=== PATIENT | male | born 1945 | race Caucasian/White ===

== ENCOUNTER 2022-05-16 16:05 | Emergency (ER) | payer MEDICARE, BC, SELFPAY ==
[2022-05-16] VITALS (24 sets, daily range): BP systolic 114–170; BP diastolic 55–81; PULSE 64–97; RESP 16; TEMP 36.3; O2SAT 94–99; BMI 25.8
--- NOTE | 2022-05-16 16:44 | ED.GENADULT ---
HPI - General Adult General Time Seen by Provider: 16:45 <Alphonse Sifuentes MD - Last Filed: 05/16/22 19:31> Date Seen: 05/16/22 <Alphonse Sifuentes MD - Last Filed: 05/16/22 19:31> Chief complaint: Abdominal Pain <Alphonse Sifuentes MD - Last Filed: 05/16/22 19:31> Stated complaint: SEVERE ABDOMINAL PAIN,RIGHT SIDE <Alphonse Sifuentes MD - Last Filed: 05/16/22 19:31> Time Seen by Provider: 05/16/22 16:30 <Alphonse Sifuentes MD - Last Filed: 05/16/22 19:31> History of Present Illness HPI narrative: Javier is a 77-year-old male past medical history includes hypertension, cardiomyopathy, presents emergency department with with abdominal pain. Patient states that around noon today he developed some right lower quadrant abdominal pain, this occurred while he was driving, he did have breakfast and lunch, set associated nausea but no vomiting, pain is 7/10, he has not taken anything for it, he denies any urinary complaints, he has had normal bowel movements, no blood in the stool. He did have a normal colonoscopy a awhile ago. Plain a sharp, worse with movement. He has not had any fevers, chills myalgias arthralgias, he got up early this morning and was feeling well. Due to the worsening pain he presents emerged department. <Alphonse Sifuentes MD - Last Filed: 05/16/22 19:31> Related Data Home medications: Home Medications Medication Instructions Recorded Confirmed amlodipine 5 mg tablet mg 05/16/22 carvedilol 12.5 mg tablet mg 05/16/22 hydrochlorothiazide 25 mg tablet mg 05/16/22 losartan 100 mg tablet mg 05/16/22 <Alphonse Sifuentes MD - Last Filed: 05/16/22 19:31> Allergies/adverse reactions: Allergies Allergy/AdvReac Type Severity Reaction Status Date / Time No Known Drug Allergies Allergy Verified 05/16/22 16:32 <Alphonse Sifuentes MD - Last Filed: 05/16/22 19:31> Review of Systems Status of ROS: Reports: 10 or more systems reviewed and unremarkable except as noted in History and below <Alphonse Sifuentes MD - Last Filed: 05/16/22 19:31> [facility] Social History: Social History Smoking Status: Never smoker Do you use any of these nicotine containing products: None Second hand tobacco smoke exposure: No How often do you have a drink containing alcohol: never How often do you have six or more drinks on one occasion: Never AUDIT-C Alcohol total score: 0 Non-prescribed substance use: denies use <Alphonse Sifuentes MD - Last Filed: 05/16/22 19:31> Exam Narrative: Exam Narrative: General: in obvious distress. HEENT: Pupils equal round react to light Neck: Supple full range of motion, no JVD Lungs: Clear to auscultation bilaterally Heart: Normal sinus rhythm S1-S2 Abdomen: Tender to palpation the right lower quadrant, there is no rebound or guarding, bowel sounds are present, abdomen is soft Muscle skeletal: No lower extremity edema Neuro: Alert awake and oriented x3 <Alphonse Sifuentes MD - Last Filed: 05/16/22 19:31> Const: Vital Signs, click to edit/add: Vital Signs - 24 hr 05/16/22 16:32 05/16/22 16:31 05/16/22 17:02 Temperature 97.4 F L Pulse Rate 69 80 Pulse Rate [Right Pulse Oximeter] 97 Respiratory Rate 16 Blood Pressure 170/78 H 156/81 H Blood Pressure [Ri ght Upper Arm] 170/78 H Pulse Oximetry 97 97 99 Oxygen Delivery Me thod Room Air 05/16/22 17:03 05/16/22 17:30 05/16/22 17:32 Temperature Pulse Rate 67 75 66 Pulse Rate [Right Pulse Oximeter] Respiratory Rate Blood Pressure 147/66 H Blood Pressure [Ri ght Upper Arm] Pulse Oximetry 97 97 96 Oxygen Delivery Me thod 05/16/22 17:33 05/16/22 18:00 05/16/22 18:02 Temperature Pulse Rate 77 70 65 Pulse Rate [Right Pulse Oximeter] Respiratory Rate Blood Pressure 114/55 L Blood Pressure [Ri ght Upper Arm] Pulse Oximetry 96 95 95 Oxygen Delivery Me thod 05/16/22 18:03 05/16/22 18:32 05/16/22 18:33 Temperature Pulse Rate 83 77 81 Pulse Rate [Right Pulse Oximeter] Respiratory Rate Blood Pressure 121/63 Blood Pressure [Ri ght Upper Arm] Pulse Oximetry 94 96 96 Oxygen Delivery Me thod 05/16/22 19:00 05/16/22 19:02 05/16/22 19:32 Temperature Pulse Rate 66 71 84 Pulse Rate [Right Pulse Oximeter] Respiratory Rate Blood Pressure 120/57 L 136/61 Blood Pressure [Ri ght Upper Arm] Pulse Oximetry 95 96 95 Oxygen Delivery Me thod 05/16/22 19:35 05/16/22 20:02 05/16/22 20:03 Temperature Pulse Rate 74 77 77 Pulse Rate [Right Pulse Oximeter] Respiratory Rate Blood Pressure 135/65 Blood Pressure [Ri ght Upper Arm] Pulse Oximetry 96 96 96 Oxygen Delivery Me thod 05/16/22 20:32 05/16/22 20:41 Temperature Pulse Rate 79 77 Pulse Rate [Right Pulse Oximeter] Respiratory Rate Blood Pressure 126/64 Blood Pressure [Ri ght Upper Arm] Pulse Oximetry 96 95 Oxygen Delivery Me thod <Alphonse Sifuentes MD - Last Filed: 05/16/22 19:31> Vital Signs, click to edit/add: Vital Signs - 24 hr 05/16/22 16:32 05/16/22 16:31 05/16/22 17:02 Temperature 97.4 F L Pulse Rate 69 80 Pulse Rate [Right Pulse Oximeter] 97 Respiratory Rate 16 Blood Pressure 170/78 H 156/81 H Blood Pressure [Ri ght Upper Arm] 170/78 H Pulse Oximetry 97 97 99 Oxygen Delivery Me thod Room Air 05/16/22 17:03 05/16/22 17:30 05/16/22 17:32 Temperature Pulse Rate 67 75 66 Pulse Rate [Right Pulse Oximeter] Respiratory Rate Blood Pressure 147/66 H Blood Pressure [Ri ght Upper Arm] Pulse Oximetry 97 97 96 Oxygen Delivery Me thod 05/16/22 17:33 05/16/22 18:00 05/16/22 18:02 Temperature Pulse Rate 77 70 65 Pulse Rate [Right Pulse Oximeter] Respiratory Rate Blood Pressure 114/55 L Blood Pressure [Ri ght Upper Arm] Pulse Oximetry 96 95 95 Oxygen Delivery Me thod 05/16/22 18:03 05/16/22 18:32 05/16/22 18:33 Temperature Pulse Rate 83 77 81 Pulse Rate [Right Pulse Oximeter] Respiratory Rate Blood Pressure 121/63 Blood Pressure [Ri ght Upper Arm] Pulse Oximetry 94 96 96 Oxygen Delivery Me thod 05/16/22 19:00 05/16/22 19:02 05/16/22 19:32 Temperature Pulse Rate 66 71 84 Pulse Rate [Right Pulse Oximeter] Respiratory Rate Blood Pressure 120/57 L 136/61 Blood Pressure [Ri ght Upper Arm] Pulse Oximetry 95 96 95 Oxygen Delivery Me thod 05/16/22 19:35 05/16/22 20:02 05/16/22 20:03 Temperature Pulse Rate 74 77 77 Pulse Rate [Right Pulse Oximeter] Respiratory Rate Blood Pressure 135/65 Blood Pressure [Ri ght Upper Arm] Pulse Oximetry 96 96 96 Oxygen Delivery Me thod 05/16/22 20:32 05/16/22 20:41 Temperature Pulse Rate 79 77 Pulse Rate [Right Pulse Oximeter] Respiratory Rate Blood Pressure 126/64 Blood Pressure [Ri ght Upper Arm] Pulse Oximetry 96 95 Oxygen Delivery Me thod <Homero Hernandez MD - Last Filed: 05/16/22 21:48> Course Course Hospital Course: 4:30 PM: AIDET performed. Vitals show mildly elevated blood pressure we will continue to monitor, will obtain CBC, CRP, CMP, lipase urinalysis, IV peripheral, 50 mcg of fentanyl, 15 mg Toradol and 4 mg Zofran for pain and nausea, suspect diverticulitis. Patient and in agreement <Alphonse Sifuentes MD - Last Filed: 05/16/22 19:31> Reevaluation(s) Reevaluation #1: Patient updated on his lab results, will obtain CT abdomen pelvis with IV contrast. Patient's pain has been controlled. <Alphonse Sifuentes MD - Last Filed: 05/16/22 19:31> Time: 18:04 <Alphonse Sifuentes MD - Last Filed: 05/16/22 19:31> Reevaluation #2: Patient updated on his imaging results, which showed massive distention of the gallbladder with numerous large peripherally calcified gallstones which measure up to 4.7 cm. Mild distention of the common hepatic duct and intrahepatic biliary tree. Mild prominence of the right ureter with stone in the right posterior bladder measuring 4 mm prostate toe megaly with mass effect upon the inferior bladder wall. Per Maurizio Serrano 7:01 p.m. plan to speak with general surgery Dr. César MOREL. <Alphonse Sifuentes MD - Last Filed: 05/16/22 19:31> Time: 18:41 <Alphonse Sifuentes MD - Last Filed: 05/16/22 19:31> Reevaluation #3: Pt asymptomatic. Urine shows hematuria without infection. There appears to be a stone in the bladder on CT. Gallbladder ultrasound reviewed with surgeon does not appear to show acute cholecystitis. LFT's are normal. Pt feeling well and would like to go home. Surgery recommends outpt consult for cholecystectomy for cholelithiasis. <Homero Hernandez MD - Last Filed: 05/16/22 21:48> Time: 21:44 <Homero Hernandez MD - Last Filed: 05/16/22 21:48> Consultations Consultation #1: General Surgery <Homero Hernandez MD - Last Filed: 05/16/22 21:48> Time: 21:46 <Homero Hernandez MD - Last Filed: 05/16/22 21:48> Vital Signs Vital signs: Initial Vital Signs Pulse Rate 69 05/16/22 16:31 Blood Pressure 170/78 H 05/16/22 16:31 Blood Pressure Mean 108 05/16/22 16:31 Pulse Oximetry 97 05/16/22 16:31 Vital Signs Pulse Rate 69 05/16/22 16:31 Blood Pressure 170/78 H 05/16/22 16:31 Pulse Oximetry 97 05/16/22 16:31 Temperature 97.4 F L 05/16/22 16:32 Pulse Rate 77 05/16/22 20:41 Respiratory Rate 16 05/16/22 16:32 Blood Pressure 126/64 05/16/22 20:32 Pulse Oximetry 95 05/16/22 20:41 Oxygen Delivery Method 05/16/22 16:32 <Alphonse Sifuentes MD - Last Filed: 05/16/22 19:31> Initial Vital Signs Pulse Rate 69 05/16/22 16:31 Blood Pressure 170/78 H 05/16/22 16:31 Blood Pressure Mean 108 05/16/22 16:31 Pulse Oximetry 97 05/16/22 16:31 Vital Signs Pulse Rate 69 05/16/22 16:31 Blood Pressure 170/78 H 05/16/22 16:31 Pulse Oximetry 97 05/16/22 16:31 Temperature 97.4 F L 05/16/22 16:32 Pulse Rate 77 05/16/22 20:41 Respiratory Rate 16 05/16/22 16:32 Blood Pressure 126/64 05/16/22 20:32 Pulse Oximetry 95 05/16/22 20:41 Oxygen Delivery Method 05/16/22 16:32 <Homero Hernandez MD - Last Filed: 05/16/22 21:48> Medical Decision Making MDM Narrative Medical decision making narrative: Dr. Sifuentes's note reviewed. Consideration for causes include acute abd, kidney stone, cholecystitis. <Homero Hernandez MD - Last Filed: 05/16/22 21:48> Lab Data Labs: Lab Results 05/16/22 05/16/22 05/16/22 Range/Units 17:05 17:05 19:50 WBC 10.46 (4.50-11.00) K/uL RBC 3.77 L (4.30-5.90) m/uL Hgb 12.4 L (13.5-17.5) gm/dL Hct 36.5 L (37.0-53.0) % MCV 97 (80-100) fL MCH 33 (26-34) pg MCHC 34 (32-36) gm/dL RDW Coeff of Keely 12.5 (11.5-15.5) % Plt Count 189 (140-440) K/uL Neut % (Auto) 86.6 H (42.0-72.0) % Lymph % (Auto) 8.9 L (20-44) % [place] % (Auto) 3.8 (0.0-11.0) % Eos % (Auto) 0.3 (0.0-7.0) % Baso % (Auto) 0.3 (0.0-3.0) % Neut # (Auto) 9.10 H (1.7-7.0) K/uL Lymph # (Auto) 0.90 (0.90-2.90) K/uL [place] # (Auto) 0.40 (0.00-0.90) K/UL Eos # (Auto) 0.03 (0.00-0.50) K/uL Baso # (Auto) 0.03 (0.00-0.30) K/uL Abs Immat Gran (auto) 0.01 (0.00-0.30) K/uL Sodium 140 (135-149) mmol/L Potassium 4.1 (3.6-5.1) mmol/L Chloride 102 (96-114) mmol/L Carbon Dioxide 31 (20-32) mmol/L BUN 23 (7-30) mg/dL Creatinine 1.4 (0.5-1.5) mg/dL Estimated Creat Clear 48.56 Estimated GFR 52 ml/min Glucose 125 H (60-115) mg/dL Calcium 9.4 (8.4-10.6) mg/dL Total Bilirubin 0.6 (0.1-1.5) mg/dL AST 28 (12-35) U/L ALT 20 (4-50) U/L Alkaline Phosphatase 74 (40-150) U/L C-Reactive Protein < 0.5 L (0.5-1.0) mg/dL Total Protein 7.5 (6.0-8.3) g/dL Albumin 4.3 (3.3-5.0) g/dL Lipase 63 (23-300) U/L Urine Color Yellow (Yellow) Urine Appearance Slightly Cloudy A (Clear) Urine pH 7.0 (5.0-8.5) Ur Specific [place] 1.010 (1.000-1.030) Urine Protein Negative (Negative) Urine Glucose (UA) Negative (Negative) Urine Ketones Negative (Negative) Urine Blood 3+ A (Negative) Urine Nitrite Negative (Negative) Urine Bilirubin Negative (Negative) Urine Urobilinogen 0.2 (0.2-1.0) Ur Leukocyte Esterase Negative (Negative) Urine RBC >100 A (0-2) Urine WBC 0-2 (0-5) Ur Squamous Epith Cells None (None-Few) Urine Bacteria None (None) <Alphonse Sifuentes MD - Last Filed: 05/16/22 19:31> Lab Results 05/16/22 05/16/22 05/16/22 Range/Units 17:05 17:05 19:50 WBC 10.46 (4.50-11.00) K/uL RBC 3.77 L (4.30-5.90) m/uL Hgb 12.4 L (13.5-17.5) gm/dL Hct 36.5 L (37.0-53.0) % MCV 97 (80-100) fL MCH 33 (26-34) pg MCHC 34 (32-36) gm/dL RDW Coeff of Keely 12.5 (11.5-15.5) % Plt Count 189 (140-440) K/uL Neut % (Auto) 86.6 H (42.0-72.0) % Lymph % (Auto) 8.9 L (20-44) % [place] % (Auto) 3.8 (0.0-11.0) % Eos % (Auto) 0.3 (0.0-7.0) % Baso % (Auto) 0.3 (0.0-3.0) % Neut # (Auto) 9.10 H (1.7-7.0) K/uL Lymph # (Auto) 0.90 (0.90-2.90) K/uL [place] # (Auto) 0.40 (0.00-0.90) K/UL Eos # (Auto) 0.03 (0.00-0.50) K/uL Baso # (Auto) 0.03 (0.00-0.30) K/uL Abs Immat Gran (auto) 0.01 (0.00-0.30) K/uL Sodium 140 (135-149) mmol/L Potassium 4.1 (3.6-5.1) mmol/L Chloride 102 (96-114) mmol/L Carbon Dioxide 31 (20-32) mmol/L BUN 23 (7-30) mg/dL Creatinine 1.4 (0.5-1.5) mg/dL Estimated Creat Clear 48.56 Estimated GFR 52 ml/min Glucose 125 H (60-115) mg/dL Calcium 9.4 (8.4-10.6) mg/dL Total Bilirubin 0.6 (0.1-1.5) mg/dL AST 28 (12-35) U/L ALT 20 (4-50) U/L Alkaline Phosphatase 74 (40-150) U/L C-Reactive Protein < 0.5 L (0.5-1.0) mg/dL Total Protein 7.5 (6.0-8.3) g/dL Albumin 4.3 (3.3-5.0) g/dL Lipase 63 (23-300) U/L Urine Color Yellow (Yellow) Urine Appearance Slightly Cloudy A (Clear) Urine pH 7.0 (5.0-8.5) Ur Specific [place] 1.010 (1.000-1.030) Urine Protein Negative (Negative) Urine Glucose (UA) Negative (Negative) Urine Ketones Negative (Negative) Urine Blood 3+ A (Negative) Urine Nitrite Negative (Negative) Urine Bilirubin Negative (Negative) Urine Urobilinogen 0.2 (0.2-1.0) Ur Leukocyte Esterase Negative (Negative) Urine RBC >100 A (0-2) Urine WBC 0-2 (0-5) Ur Squamous Epith Cells None (None-Few) Urine Bacteria None (None) <Homero Hernandez MD - Last Filed: 05/16/22 21:48> Discharge Plan Discharge Clinical Impression: Cholelithiasis <Alphonse Sifuentes MD - Last Filed: 05/16/22 19:31> Patient Disposition: Home, Self-Care <Alphonse Sifuentes MD - Last Filed: 05/16/22 19:31> Condition: Improved <Alphonse Sifuentes MD - Last Filed: 05/16/22 19:31> Instructions: Gallstones (ED) <Alphonse Sifuentes MD - Last Filed: 05/16/22 19:31> Additional Instructions: Follow up with Dr. Danuta Lindsey for discussion of outpt cholecystectomy <Alphonse Sifuentes MD - Last Filed: 05/16/22 19:31> Activity Level: No Restrictions <Alphonse Sifuentes MD - Last Filed: 05/16/22 19:31> No Restrictions <Homero Hernandez MD - Last Filed: 05/16/22 21:48> Diet Detail: Low Fat Diet <Alphonse Sifuentes MD - Last Filed: 05/16/22 19:31> Low Fat Diet <Homero Hernandez MD - Last Filed: 05/16/22 21:48> Prescriptions: No Action carvedilol 12.5 mg tablet amlodipine 5 mg tablet hydrochlorothiazide 25 mg tablet losartan 100 mg tablet <Alphonse Sifuentes MD - Last Filed: 05/16/22 19:31> Follow Up/Referrals: Joao Beach MD [Primary Care Provider] - <Alphonse Sifuentes MD - Last Filed: 05/16/22 19:31> Stand Alone Forms: My[facility] Info Instructions <Alphonse Sifuentes MD - Last Filed: 05/16/22 19:31>
[2022-05-16] MEDS: ONDANSETRON 2 MG/ML inj 4 MG IVP (17:09)
[2022-05-16] MEDS: fentaNYL 100 MCG/2 ML inj 50 MCG IVP (17:14)
[2022-05-16 17:21] LABS: Basophils Absolute Auto 0.03 K/uL (0.00-0.30); Basophils Percent Auto 0.3 % (0.0-3.0); Eosinophils Absolute Auto 0.03 K/uL (0.00-0.50); Eosinophils Percent Auto 0.3 % (0.0-7.0); Hematocrit 36.5 % (37.0-53.0); Hemoglobin* 12.4 gm/dL (13.5-17.5); Immature Granulocytes Abs Auto 0.01 K/uL (0.00-0.30); Lymphocytes Percent Auto 8.9 % (20-44); Mean Corpuscular HGB Conc 34 gm/dL (32-36); Mean Corpuscular Hemoglobin 33 pg (26-34); Mean Corpuscular Volume 97 fL (80-100); Monocytes Percent Auto 3.8 % (0.0-11.0); Neutrophils Percent Auto 86.6 % (42.0-72.0); Platelet Count* 189 K/uL (140-440); RDW Coefficient of Variation % 12.5 % (11.5-15.5); Red Blood Count 3.77 m/uL (4.30-5.90); White Blood Count* 10.46 K/uL (4.50-11.00)
[2022-05-16] MEDS: KETOROLAC 15 MG/ML inj IVP (17:21)
[2022-05-16 17:35] LABS: Albumin* 4.3 g/dL (3.3-5.0); Chloride* 102 mmol/L (96-114); Sodium* 140 mmol/L (135-149)
[2022-05-16 17:36] LABS: Potassium* 4.1 mmol/L (3.6-5.1)
[2022-05-16 17:37] LABS: Creatinine* 1.4 mg/dL (0.5-1.5); Est. Creatinine Clearance* 48.56; Estimated Glomerular Filt Rate 52 ml/min
[2022-05-16 17:38] LABS: Alanine Aminotransferase* 20 U/L (4-50); Alkaline Phosphatase* 74 U/L (40-150); Aspartate Amino Transferase* 28 U/L (12-35); Bilirubin Total* 0.6 mg/dL (0.1-1.5); Blood Urea Nitrogen* 23 mg/dL (7-30); Carbon Dioxide* 31 mmol/L (20-32); Glucose* 125 mg/dL (60-115); Lipase* 63 U/L (23-300); Total Protein* 7.5 g/dL (6.0-8.3)
[2022-05-16 17:39] LABS: Calcium* 9.4 mg/dL (8.4-10.6)
--- NOTE | 2022-05-16 17:42 | CRLHL7_ITS ---
For Patients: As a result of the Century Cures Act, medical imaging exams and procedure reports are released immediately into your electronic medical record. You may view this report before your referring provider. If you have questions, please contact your health care provider. Indication: SEVERE ABDOMINAL PAIN ON RIGHT SIDE Technique: Postcontrast CT abdomen and pelvis. 91 cc Isovue 370 intravenous contrast. Please note that all CT scans at this facility use dose modulation, iterative reconstruction, and/or weight-based dosing when appropriate to reduce radiation dose to as low as reasonably achievable. Comparison: None Findings: The gallbladder is massively distended measuring 13.4 cm. Left are present with peripheral calcifications measuring 4.7 cm, 3.7 cm and 2.0 cm. No pericholecystic fluid. The gallbladder wall is not particularly dilated. The common hepatic duct measures 9 millimeters and the common bile duct measures 4 millimeters. I do not see any evidence of a distal common bile duct stone. Mild distention of the intrahepatic biliary tree noted. As the stones nearly fill the entire lumen of the gallbladder. No intrahepatic mass. Adrenal glands normal. Vascular calcifications. Parapelvic cysts left kidney and extrarenal pelvis right kidney. Punctate 2 millimeter nonobstructing stone right kidney. Mild dependent scarring in both lung bases without pleural effusion. No free intraperitoneal air. Pancreas and spleen are normal. No upper abdominal adenopathy. Prostate is enlarged with mass effect upon the bladder. There is a stone associated with the posterior bladder measuring 4 millimeters. Mild prominence of the right ureter without ureteral stone. No bowel obstruction or abscess. Degenerative changes throughout the lumbar spine with grade 1 degenerative spondylolisthesis of L4 on L5. Impression: Massive distention of the gallbladder with numerous large peripherally calcified gallstones which measure up to 4.7 cm. Mild distension of the common hepatic duct and intrahepatic biliary tree. Mild prominence of the right ureter with stone in the right posterior bladder measuring 4 millimeters. Prostatomegaly with mass effect upon the inferior bladder wall. Please note that all CT scans at this facility use dose modulation, iterative reconstruction, and/or weight-based dosing when appropriate to reduce radiation dose to as low as reasonably achievable. Dictated by Maurizio Serrano MD @ 05/16/2022 7:01:41 PM (Electronically Signed)
[2022-05-16 17:48] LABS: C Reactive Protein* < 0.5 mg/dL (0.5-1.0)
[2022-05-16 17:49] LABS: Slide Review Reflex No
--- NOTE | 2022-05-16 19:37 | CRLHL7_ITS ---
For Patients: As a result of the Century Cures Act, medical imaging exams and procedure reports are released immediately into your electronic medical record. You may view this report before your referring provider. If you have questions, please contact your health care provider. INDICATION: Evaluate gallbladder stones, right upper quadrant pain COMPARISON: CT or earlier this evening TECHNIQUE: Real time jacome scale imaging and color Doppler analysis was performed of the right upper quadrant. FINDINGS: The patient`s liver is of normal size and has uniform echogenicity. There is a normal appearance of the hepatic IVC and proximal abdominal aorta. There is no evidence of ascites. The gallbladder is distended and there is several large peripherally calcified gallstones again noted. The gallbladder wall measures 4 mm in thickness. The common bile duct is of normal size and measures 4 mm in diameter at the level of the parker hepatis. The visualized pancreas appears normal. There is no evidence of a stone or hydronephrosis within the right kidney. The right kidney measures 11.3 cm in length. IMPRESSION: Large gallstones in the gallbladder lumen with mild gallbladder wall thickening suggesting cholecystitis in the appropriate clinical setting correlate with liver function tests. Dictated by Maurizio Serrano MD @ 05/16/2022 9:27:36 PM (Electronically Signed)
[2022-05-16 19:57] LABS: Appearance Urine Slightly Cloudy (Clear); Bilirubin Urine Negative (Negative); Blood Urine 3+ (Negative); Color Urine Yellow (Yellow); Glucose Urine Negative (Negative); Ketones Urine Negative (Negative); Leukocyte Esterase Urine Negative (Negative); Nitrite Urine Negative (Negative); Protein Urine Negative (Negative); Urobilinogen Urine 0.2 (0.2-1.0)
[2022-05-16 20:40] LABS: RBC Urine >100 (0-2); WBC Urine 0-2 (0-5)
== END 2022-05-16 21:58 | disposition home or self-care (01) ==
PROVIDERS: Emergency Provider Student in an Organized Health Care Education/Training Program; PCP Family Medicine
DX: K80.20 Calculus of gallbladder without cholecystitis without obstruction (principal)
CPT/HCPCS: 36415; 74177; 76705; 80053; 81003; 81015; 83690; 85025; 86140; 96374; 96375; 99283; 99285; J1885; J2405; J3010; Q9967

== ENCOUNTER 2022-10-20 06:12 | Day surgery (SDC) | payer MEDICARE, BC, SELFPAY ==
[2022-10-20] VITALS (11 sets, daily range): BP systolic 115–149; BP diastolic 52–65; PULSE 52–68; RESP 10–16; TEMP 36–36.4; O2SAT 94–98; BMI 27.0
[2022-10-20] MEDS: LACTATED RINGERS 1000 ML 1,000 ML 100 ML IV ×2 (06:55→08:36)
[2022-10-20] MEDS: SODIUM CHLORIDE 0.9 % (FLUSH) 10 ML SYRINGE IVF (07:26)
--- NOTE | 2022-10-20 07:28 | SUR.PREOP ---
Patient provided home covid negative results to RN.
[2022-10-20] MEDS: CEFAZOLIN 2 GM INJ IVP (07:37)
[2022-10-20] MEDS: BUPIVACAINE 0.5% 30 ML INJECTION (08:55)
--- NOTE | 2022-10-20 09:08 | P.GSOP_ITS ---
Operative Note Date of procedure: 10/20/22 Pre-op diagnosis: Cholelithiasis Post-op diagnosis: Same Type of Procedure: Laparoscopic cholecystectomy Indications: Patient is a 77-year-old male who presented to clinic with incidentally found large gallstones (greater than 2 cm). Different treatment options were reviewed, including observation versus surgical intervention. Given the size of the gallstones the patient is at increased risk for gallbladder cancer. Risks and benefits of operative intervention were discussed at length with the patient. Risks included but was not limited to: Bleeding, infection, risk of damage to surrounding structures, possible need for additional procedures, possible need to convert to an open operation and postoperative complications such as pneumonia, pulmonary emboli or CA. All questions and concerns were addressed with the patient agreeing to proceed. Procedure Description: After discussing the risks and benefits of the procedure, the patient signed informed consent.? The operative site was marked and the patient was brought to the operating room and placed on the operating table in supine position.? Care was taken to pad the patient's pressure points.?? The patient was then intubated by anesthesia.?? The operative site was then prepped and draped in the usual s terile fashion.? A time-out was then performed. Entrance to the abdomen was gained via a 5 mm Visiport in the left upper quadrant. The abdomen was insufflated and briefly surveyed for signs of injury. There was none. There were small amount of adhesions of omentum to the anterior abdominal wall supraumbilical. An 11 mm umbilical port was placed as well as 2 working ports along the right costal margin. Patient was then placed in reverse Trendelenburg position with the right side up. The gallbladder fundus was grasped and retracted cephalad. [A small amount of dissection was needed to free omental adhesions from the gallbladder.] The infundibulum was grasped. A combination of hook cautery and blunt dissection was used to carefully dissect out the cystic duct and artery until they could clearly be seen entering the gallbladder without any intervening structures. The gallbladder was dissected off the cystic plate to achieve the critical view. Once this was achieved the cystic duct and artery were each clipped with 2 clips proximally and 1 clip distally and transected with the scissors. The gallbladder was then taken off of the liver bed. A small arterial branch off of the cystic duct artery was visualized during dissection. A single clip was placed proximal and it was cauterized distally. No spilling occurred during this portion of the procedure and the gallbladder was removed from the abdomen using an Endo-Catch bag. This portion of the procedure was difficult secondary to size of the gallstones. The fascial incision was extended medial and lateral to allow for the gallbladder to come out. During manipulation the bag remained intact but there was a small amount of bile spillage onto the external surface of the abdominal wall. The gallbladder bed was surveyed for hemostasis. A small point of arterial bleeding was seen on the apex of the gallbladder fossa. This was controlled with several 5 mm clips. At the end of this hemostasis was excellent. tThe ports were then removed under direct vision. The umbilical port fascia was closed with running 0 Vicryl. The fascial defect measured 3 cm in size. The subcutaneous space was filled with a mixture of 1-1 Betadine and saline and allowed to sit for 3 minutes. The skin was then closed with absorbable subcuticular suture. Instrument sponge and needle counts were correct at the end of the case. The pat ient was then woken and transferred to the PACU in stable condition. ? Findings: Several large gallstones. Anesthesia: GETA Surgeon: Julianna Lindsey MD Estimated blood loss (mL): 5 Specimen: Gallbladder Condition: stable Disposition: same day
--- NOTE | 2022-10-20 09:38 | W.ANESCHARGE ---
Anesthesia Charges Start Date/Time Anesthesia Start Date: 10/20/22 Anesthesia Start Time: 07:36 Stop Date/Time Anesthesia Stop Date: 10/20/22 Anesthesia Stop Time: 09:08 Summary Extremes of Age - Over 70 or under 1: MDA
[2022-10-20] MEDS: ACETAMINOPHEN 325 MG TABLET 650 MG PO (10:39)
== END 2022-10-20 11:12 | disposition home or self-care (01) ==
PROVIDERS: PCP Family Medicine; Visit Provider Surgery
PROC: 0FT44ZZ Resection of Gallbladder, Percutaneous Endoscopic Approach (ICD-10-PCS; CPT 47562; principal; 2022-10-20 07:30)
DX: K80.10 Calculus of gallbladder with chronic cholecystitis without obstruction (principal)
CPT/HCPCS: 47562; 790; 88304; 99100; A9270; J0690; J1100; J1885; J2405; J2704; J3010; J3490; J7120

== ENCOUNTER 2023-08-13 11:45 | Observation (INO) | payer MEDICARE, BC, SELFPAY ==
[2023-08-13] VITALS (24 sets, daily range): BP systolic 119–155; BP diastolic 50–84; PULSE 66–105; RESP 18–22; TEMP 37.3–39.1; O2SAT 90–99; BMI 25.1; BMI 25.8
--- NOTE | 2023-08-13 12:20 | ED_ITS ---
HPI - General Adult General Time Seen by Provider: 12:20 Date Seen: 08/13/23 Chief complaint: Urogenital Problems, Male Stated complaint: possible infection Time Seen by Provider: 08/13/23 11:59 Source: patient and RN notes reviewed Mode of arrival: ambulatory Limitations: no limitations History of Present Illness HPI narrative: This 78-year-old male is ambulatory in the ED of his own accord accompanied by his with concern of possible infection. He started having shaking this morning. He is febrile on presentation. He denies any new or significant pain. About 2 weeks ago he had a robotic assisted laparoscopic radical prostatectomy for prostate cancer. He does have an indwelling Maza in. He denies any cough, no shortness of breath, no respiratory symptoms. He has no increased abdominal pain, no nausea or vomiting, no diarrhea. Related Data Home Medications Medication Instructions Recorded Confirmed amlodipine 5 mg tablet 5 mg PO DAILY 05/16/22 08/13/23 carvedilol 12.5 mg tablet 12.5 mg PO BID 05/16/22 08/13/23 hydrochlorothiazide 25 mg tablet 25 mg PO DAILY 05/16/22 08/13/23 losartan 100 mg tablet 100 mg PO DAILY 05/16/22 08/13/23 glucosamine sulfate 500 mg capsule 500 mg PO BID 10/18/22 08/13/23 selenium 200 mcg capsule 200 mcg PO DAILY 10/18/22 08/13/23 capsicum (cayenne) 450 mg capsule mg PO 08/13/23 cinnamon bark 500 mg capsule 500 mg PO DAILY 08/13/23 08/13/23 (Cinnamon) flax seed 08/13/23 sangeeta (Zingiber officinalis) 250 250 mg PO DAILY 08/13/23 08/13/23 mg capsule (sangeeta extract) melaluka 08/13/23 multivitamin (Daily Multi-Vitamin 1 tab PO DAILY 08/13/23 08/13/23 tablet) niacin 100 mg tablet 100 mg PO DAILY 08/13/23 08/13/23 Allergies Allergy/AdvReac Type Severity Reaction Status Date / Time lisinopril Allergy Cough Verified 10/18/22 11:21 Review of Systems Status of ROS: Reports: 6 or more systems reviewed and unremarkable except as noted in History and below [facility] Medical History (Updated 08/13/23 @ 16:40 by Gena Perdomo MD) Ascending aorta dilatation ?I77.810 - Thoracic aortic ectasia (ICD-10) H/O echocardiogram ?Z92.89 - Personal history of other medical treatment (ICD-10) Left ventricular dysfunction ?I51.9 - Heart disease, unspecified (ICD-10) Aortic regurgitation ?I35.1 - Nonrheumatic aortic (valve) insufficiency (ICD-10) Nonobstructive atherosclerosis of coronary artery ?I25.10 - Atherosclerotic heart disease of [place] coronary artery without angina pectoris (ICD-10) Ischemic cardiomyopathy ?I25.5 - Ischemic cardiomyopathy (ICD-10) Primary malignant neoplasm of prostate ?C61 - Malignant neoplasm of prostate (ICD-10) Elevated PSA ?R97.20 - Elevated prostate specific antigen [PSA] (ICD-10) Essential hypertension ?I10 - Essential (primary) hypertension (ICD-10) Seborrheic keratoses ?L82.1 - Other seborrheic keratosis (ICD-10) 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 ?Z79.01 - detention (current) use of anticoagulants (ICD-10) Surgical History (Updated 08/13/23 @ 16:32 by Gena Perdomo MD) Hx laparoscopic cholecystectomy (~10/20/22) ?Z90.49 - Acquired absence of other specified parts of digestive tract (ICD- 10) Hx of colonoscopy ?Z98.890 - Other specified postprocedural states (ICD-10) Status post prostatectomy (~08/02/23) ?Z90.79 - Acquired absence of other genital organ(s) (ICD-10) History of tonsillectomy and adenoidectomy (~195) ?Z90.89 - Acquired absence of other organs (ICD-10) Hx of inguinal hernia repair (~08/30/12) ?Z98.890 - Other specified postprocedural states (ICD-10) ?Z87.19 - Personal history of other diseases of the digestive system (ICD-10) Family History (Updated 08/13/23 @ 16:36 by Gena Perdomo MD) Mother Breast cancer CHF (congestive heart failure) High blood pressure Dementia Thyroid disease Father Parkinsonism Social History (Updated 08/13/23 @ 17:21 by Gena Perdomo MD) Narrative: 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 to Lazaro, whose here with him today. Lifelong non tobacco user. Denies alcohol or recreational drug use. What is your current living situation?: I presently have a place to live Problems where you live: no known problems Problems where you live details: NA In the past 12 months, utilities in danger of being shut off: no In past 12 months, lack of transportation kept you from medical appts, meetings, work, or getting things needed for daily living: no In the past 12 mos, have been you worried that your food would run out before you had money to buy more?: never true In the past 12 mos, the food you bought just didn't last and you didn't have money to buy more?: never true Smoking Status: Never smoker Do you use any of these nicotine containing products: None Second hand tobacco smoke exposure: No How often do you have a drink containing alcohol: never How often do you have six or more drinks on one occasion: Never AUDIT-C Alcohol total score: 0 Non-prescribed substance use: denies use Caffeine: No How often does anyone, including family, friends and others, physically hurt you : never How often does anyone, including family, friends and others, insult or talk down to you: never How often does anyone, including family, friends and others, threaten you with harm: never How often does anyone, including family, friends and others, scream or curse at you: never service: No Exam Const: Vital Signs, click to edit/add: Vital Signs - 24 hr 08/13/23 12:04 08/13/23 12:20 08/13/23 12:21 Temperature 100.3 F H Pulse Rate Pulse Rate [Pulse Oximeter] 70 Respiratory Rate 22 Blood Pressure Blood Pressure [Ri ght Upper Arm] 155/57 H Pulse Oximetry 98 95 97 08/13/23 12:40 08/13/23 12:49 08/13/23 13:00 Temperature Pulse Rate 82 93 83 Pulse Rate [Pulse Oximeter] Respiratory Rate Blood Pressure Blood Pressure [Ri ght Upper Arm] Pulse Oximetry 94 95 96 08/13/23 13:15 08/13/23 13:30 08/13/23 13:44 Temperature Pulse Rate 91 92 85 Pulse Rate [Pulse Oximeter] Respiratory Rate Blood Pressure 151/84 H Blood Pressure [Ri ght Upper Arm] Pulse Oximetry 96 99 96 08/13/23 13:45 08/13/23 14:00 08/13/23 14:15 Temperature Pulse Rate 82 69 66 Pulse Rate [Pulse Oximeter] Respiratory Rate Blood Pressure Blood Pressure [Ri ght Upper Arm] Pulse Oximetry 96 93 90 08/13/23 14:30 08/13/23 14:33 08/13/23 14:45 Temperature Pulse Rate 103 H 105 H 102 H Pulse Rate [Pulse Oximeter] Respiratory Rate Blood Pressure 142/72 H Blood Pressure [Ri ght Upper Arm] Pulse Oximetry 94 96 97 08/13/23 15:00 08/13/23 15:15 08/13/23 15:30 Temperature Pulse Rate 103 H 101 H 103 H Pulse Rate [Pulse Oximeter] Respiratory Rate Blood Pressure Blood Pressure [Ri ght Upper Arm] Pulse Oximetry 95 95 95 João is a very pleasant 78-year-old male that looks like he does not feel well but is still very conversive. He able to speak in complete sentences. Symmetrical facial function, sclera clear, conjugate gaze. Cheeks are flushed but without any facial rash. Neck is supple, no cervical adenopathy, no th yromegaly masses or nodules. Able to sit up on his own, lungs are clear, good air entry, no wheezing or crackles, no tachypnea. CV regular rate and rhythm, no murmur, normal S1 and S2. Abdomen has port sites that are healing, wounds are clean dry and intact, no drainage noted. He does have some bruising of the abdominal wall. Overall his abdomen is not significantly tender, note no masses or rebound or guarding. He has no lower extremity edema. Moving extremities. Documenting provider has reviewed patient's vital signs: yes Course Course ED Course: This patient obviously has concerns for infectious etiology. His indwelling Maza, would be 1st and foremost in my mind, will obtain chest x-ray to rule out developing postoperative pneumonia. Will check the triple viral swab as that is always a possibility as well. He will have an IV placed, initiate Tylenol for fever management. Watch closely for sepsis. Need to try to find the source of his infectious cause. Reevaluation(s) Time of Reevaluation #1: 14:20 Reevaluation #1: Have discussed with patient and his the concerned that this is a urinary tract infection. I have ordered 1 g IV Rocephin. Reviewed with them that I do think it would be prudent for him to be observed in the hospital at least overnight to ensure that he is not clinically worsening. 1510pm Reviewed with Dr. Perdomo. Consultations Consultation #1: Have reviewed with the current hospitalist Dr. Hernandez. He is going to have Dr. Perdomo the oncoming night hospitalists take over this patient. I will await a call back from her. Upon my discussion with Dr. Hernandez, he agrees that he is not inclined to want any abdominal imaging. Certainly if the patient's status changes or there is increasing abdominal symptoms which he is not having currently, abdominal imaging could always be considered. I do not feel it is necessary at this time. Time: 14:25 Vital Signs Vital signs: Initial Vital Signs Temperature 100.3 F H 08/13/23 12:04 Temperature Source Temporal Artery Scan 08/13/23 12:04 Pulse Rate 70 08/13/23 12:04 Pulse Rhythm Regular 08/13/23 12:04 Respiratory Rate 22 08/13/23 12:04 Blood Pressure 155/57 H 08/13/23 12:04 Blood Pressure Mean 89 08/13/23 12:04 Blood Pressure Position Sitting 08/13/23 12:04 Pulse Oximetry 98 08/13/23 12:04 Vital Signs Temperature 100.3 F H 08/13/23 12:04 Pulse Rate 70 08/13/23 12:04 Respiratory Rate 22 08/13/23 12:04 Blood Pressure 155/57 H 08/13/23 12:04 Pulse Oximetry 98 08/13/23 12:04 Temperature 102.3 F H 08/13/23 16:00 Pulse Rate 96 08/13/23 16:00 Respiratory Rate 18 08/13/23 16:00 Blood Pressure 130/62 08/13/23 16:00 Pulse Oximetry 96 08/13/23 16:36 Medications Administered Medications: Discontinued Medications Generic Name Dose Route Start Last Admin Trade Name Freq PRN Reason Stop Dose Admin Acetaminophen 650 mg 08/13/23 13:33 08/13/23 13:41 Acetaminophen 325 Mg Tablet PO 08/13/23 13:34 650 mg ONCE ONE Administration Ceftriaxone Sodium 1 gm/ 100 mls @ 200 mls/hr 08/13/23 14:03 08/13/23 15:35 Sodium Chloride IVPB 08/13/23 14:04 Infused ONCE ONE Infusion Sodium Chloride 1,000 mls @ 500 mls/hr 08/13/23 14:22 08/13/23 14:32 0.9 % Sodium Chloride 1000 Ml IV 08/13/23 16:21 500 mls/hr .Q2H ABI Administration Medical Decision Making Lab Data Lab results reviewed: Yes I reviewed the patient's lab results Labs: Lab Results 08/13/23 08/13/23 08/13/23 Range/Units 12:16 12:49 13:44 WBC 14.80 H (4.50-11.00) K/uL RBC 3.23 L (4.30-5.90) m/uL Hgb 10.7 L (13.5-17.5) gm/dL Hct 32.8 L (37.0-53.0) % MCV 102 H (80-100) fL MCH 33 (26-34) pg MCHC 33 (32-36) gm/dL RDW Coeff of Keely 13.0 (11.5-15.5) % Plt Count 259 (140-440) K/uL Neut % (Auto) 84.6 H (42.0-72.0) % Lymph % (Auto) 6.2 L (20-44) % [place] % (Auto) 7.6 (0.0-11.0) % Eos % (Auto) 1.3 (0.0-7.0) % Baso % (Auto) 0.1 (0.0-3.0) % Neut # (Auto) 12.50 H (1.7-7.0) K/uL Lymph # (Auto) 0.90 (0.90-2.90) K/uL [place] # (Auto) 1.10 H (0.00-0.90) K/UL Eos # (Auto) 0.20 (0.00-0.50) K/uL Baso # (Auto) 0.00 (0.00-0.30) K/uL Abs Immat Gran (auto) 0.00 (0.00-0.30) K/uL Imm/Tot Granulo (auto) 0.2 % Sodium 139 (135-149) mmol/L Potassium 3.7 (3.6-5.1) mmol/L Chloride 102 (96-114) mmol/L Carbon Dioxide 31 (20-32) mmol/L Anion Gap 6 L (7-15) mEq/L BUN 23 (7-30) mg/dL Creatinine 1.0 (0.5-1.5) mg/dL Estimated Creat Clear 64.89 Estimated GFR 78 ml/min Glucose 136 H (60-115) mg/dL Lactate 1.1 (0.5-1.9) mmol/L Calcium 9.2 (8.4-10.6) mg/dL Total Bilirubin 0.6 (0.1-1.5) mg/dL AST 29 (12-35) U/L ALT 30 (4-50) U/L Alkaline Phosphatase 66 (40-150) U/L C-Reactive Protein 7.5 H (0.5-1.0) mg/dL Total Protein 7.1 (6.0-8.3) g/dL Albumin 4.1 (3.3-5.0) g/dL Urine Color Yellow (Yellow) Urine Appearance Cloudy A (Clear) Urine pH 5.5 (5.0-8.5) Ur Specific [place] 1.025 (1.000-1.030) Urine Protein 1+ A (Negative) Urine Glucose (UA) Negative (Negative) Urine Ketones Negative (Negative) Urine Blood 3+ A (Negative) Urine Nitrite Negative (Negative) Urine Bilirubin Negative (Negative) Urine Urobilinogen 0.2 (0.2-1.0) Ur Leukocyte Esterase 1+ A (Negative) Urine RBC 25-50 A (0-2) Urine WBC 50-100 A (0-5) Ur Squamous Epith Cells Moderate A (None-Few) Urine Bacteria Moderate A (None) SARS-CoV-2 (PCR) Negative SARS-CoV-2 (Negative) Influenza Type A (PCR) Negative PCR FLU A (Negative) Influenza Type B (PCR) Negative PCR FLU B (Negative) RSV (PCR) Negative PCR RSV (Negative) Imaging Data Chest x-ray: Attestation: I have reviewed the pertinent imaging results. Radiologist's impression: Patient: JOÃO SANCHES Facility:?[facility] Patient ID:?[id number] Site Patient ID:?[id number]. Site :?[id number] Study:?XRay Chest PORTABLE-08/13/2023 12:43:09 PM Ordering Physician:?Bebeto Rojas Final Report: INDICATION: Fever COMPARISON: None. TECHNIQUE: 1 view chest radiograph. FINDINGS: Lung volumes are good. No focal consolidations. No pulmonary edema. No pleural effusion. No pneumothorax. No pneumomediastinum. Normal cardiomediastinal silhouette. Bones: Normal for age. IMPRESSION: Lungs clear. Normal chest radiograph. Dictated by Virginia Resendiz MD @ 08/13/2023 1:30:49 PM (Electronic Signature) ECG Data Attestation: I personally reviewed and interpreted this ECG as follows: (Normal sinus rhythm, 80 beats per minute. Bifascicular block. No acute ischemia noted. QT corrected 484 milliseconds.) Discharge Plan Discharge Clinical Impression: Maza catheter in place, Fever, Status post prostatectomy, Acute UTI Patient Disposition: Admitted As Observation
--- NOTE | 2023-08-13 12:21 | CRLHL7_ITS ---
For Patients: As a result of the Cures Act, medical imaging exams and procedure reports are released immediately into your electronic medical record. You may view this report before your referring provider. If you have questions, please contact your health care provider. INDICATION: Fever COMPARISON: None. TECHNIQUE: 1 view chest radiograph. FINDINGS: Lung volumes are good. No focal consolidations. No pulmonary edema. No pleural effusion. No pneumothorax. No pneumomediastinum. Normal cardiomediastinal silhouette. Bones: Normal for age. IMPRESSION: Lungs clear. Normal chest radiograph. Dictated by Virginia Resendiz MD @ 08/13/2023 1:30:49 PM (Electronically Signed)
[2023-08-13 13:00] LABS: Lactate* 1.1 mmol/L (0.5-1.9)
[2023-08-13 13:04] LABS: Basophils Percent Auto 0.1 % (0.0-3.0); Eosinophils Percent Auto 1.3 % (0.0-7.0); Hematocrit 32.8 % (37.0-53.0); Hemoglobin* 10.7 gm/dL (13.5-17.5); Immature Granulocytes Pct Auto 0.2 %; Lymphocytes Percent Auto 6.2 % (20-44); Mean Corpuscular HGB Conc 33 gm/dL (32-36); Mean Corpuscular Hemoglobin 33 pg (26-34); Mean Corpuscular Volume 102 fL (80-100); Monocytes Percent Auto 7.6 % (0.0-11.0); Neutrophils Percent Auto 84.6 % (42.0-72.0); Platelet Count* 259 K/uL (140-440); Red Blood Count 3.23 m/uL (4.30-5.90); Slide Review Reflex No
[2023-08-13 13:06] LABS: PCR FLU A Negative PCR FLU A (Negative); PCR FLU B Negative PCR FLU B (Negative); PCR RSV Negative PCR RSV (Negative)
[2023-08-13 13:13] LABS: SARS PCR* Negative SARS-CoV-2 (Negative)
[2023-08-13 13:19] LABS: Chloride* 102 mmol/L (96-114)
[2023-08-13 13:20] LABS: Albumin* 4.1 g/dL (3.3-5.0); Potassium* 3.7 mmol/L (3.6-5.1); Sodium* 139 mmol/L (135-149)
[2023-08-13 13:22] LABS: Est. Creatinine Clearance* 64.89; Estimated Glomerular Filt Rate 78 ml/min
[2023-08-13 13:23] LABS: Alanine Aminotransferase* 30 U/L (4-50); Alkaline Phosphatase* 66 U/L (40-150); Anion Gap 6 mEq/L (7-15); Aspartate Amino Transferase* 29 U/L (12-35); Bilirubin Total* 0.6 mg/dL (0.1-1.5); Blood Urea Nitrogen* 23 mg/dL (7-30); Carbon Dioxide* 31 mmol/L (20-32); Glucose* 136 mg/dL (60-115); Total Protein* 7.1 g/dL (6.0-8.3)
[2023-08-13 13:24] LABS: Calcium* 9.2 mg/dL (8.4-10.6)
[2023-08-13 13:26] LABS: C Reactive Protein* 7.5 mg/dL (0.5-1.0)
[2023-08-13] MEDS: ACETAMINOPHEN 325 MG TABLET 650 MG PO (13:41)
[2023-08-13 13:47] LABS: Appearance Urine Cloudy (Clear); Bilirubin Urine Negative (Negative); Blood Urine 3+ (Negative); Color Urine Yellow (Yellow); Glucose Urine Negative (Negative); Ketones Urine Negative (Negative); Leukocyte Esterase Urine 1+ (Negative); Nitrite Urine Negative (Negative); Protein Urine 1+ (Negative); Specific Gravity Urine 1.025 (1.000-1.030); Urobilinogen Urine 0.2 (0.2-1.0); pH Urine 5.5 (5.0-8.5)
[2023-08-13 13:56] LABS: Bacteria Urine Moderate; RBC Urine 25-50 (0-2); Squamous Epithelial Cell Urine Moderate (None-Few); WBC Urine 50-100 (0-5)
[2023-08-13] MEDS: 0.9 % SODIUM CHLORIDE 1000 ml 1,000 ML 500 ML IV (14:32)
[2023-08-13] MEDS: cefTRIAXone 1 GM in 0.9 % SODIUM CHLORIDE Mini-bag 100 ML IVPB (14:33)
--- NOTE | 2023-08-13 16:53 | PM.IMHP1 ---
Hospitalist- H&P: HPI History of Present Illness Time Seen by Provider: 16:30 Date Seen: 08/13/23 Chief complaint: possible infection Narrative: Javier Hull is a 78 year old male who underwent a robot assisted prostatectomy on 08/02/[address] Elena mclaughlin at [facility]. He has had a domingo catheter in since then and is supposed to get it taken out this coming Monday. He has been doing very well since then until he noted his urine was more orange and cloudy over the last few days. Then this morning he started feeling unwell in alevism. He noted dizziness, lightheadedness and shaking chills. He feels dry and notes that he chronically does not drink enough water. He denies bowel changes, URIs, coughs, congestion, CP, or SOB. Review of Systems Status of ROS: Reports: 10 or more systems reviewed and unremarkable except as noted in History and below [facility] Medical History (Updated 08/13/23 @ 16:40 by Gena Perdomo MD) Ascending aorta dilatation ?I77.810 - Thoracic aortic ectasia (ICD-10) H/O echocardiogram ?Z92.89 - Personal history of other medical treatment (ICD-10) Left ventricular dysfunction ?I51.9 - Heart disease, unspecified (ICD-10) Aortic regurgitation ?I35.1 - Nonrheumatic aortic (valve) insufficiency (ICD-10) Nonobstructive atherosclerosis of coronary artery ?I25.10 - Atherosclerotic heart disease of [place] coronary artery without angina pectoris (ICD-10) Ischemic cardiomyopathy ?I25.5 - Ischemic cardiomyopathy (ICD-10) Primary malignant neoplasm of prostate ?C61 - Malignant neoplasm of prostate (ICD-10) Elevated PSA ?R97.20 - Elevated prostate specific antigen [PSA] (ICD-10) Essential hypertension ?I10 - Essential (primary) hypertension (ICD-10) Seborrheic keratoses ?L82.1 - Other seborrheic keratosis (ICD-10) 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 ?Z79.01 - [facility] (current) use of anticoagulants (ICD-10) Surgical History (Updated 08/13/23 @ 16:32 by Gena Perdomo MD) Hx laparoscopic cholecystectomy (~10/20/22) ?Z90.49 - Acquired absence of other specified parts of digestive tract (ICD-10) Hx of colonoscopy ?Z98.890 - Other specified postprocedural states (ICD-10) Status post prostatectomy (~08/02/23) ?Z90.79 - Acquired absence of other genital organ(s) (ICD-10) History of tonsillectomy and adenoidectomy (~195) ?Z90.89 - Acquired absence of other organs (ICD-10) Hx of inguinal hernia repair (~08/30/12) ?Z98.890 - Other specified postprocedural states (ICD-10) ?Z87.19 - Personal history of other diseases of the digestive system (ICD-10) Family History (Updated 08/13/23 @ 16:36 by Gena Perdomo MD) Mother Breast cancer CHF (congestive heart failure) High blood pressure Dementia Thyroid disease Father Parkinsonism Social History (Updated 08/13/23 @ 17:21 by Gena Perdomo MD) Narrative: 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 to Lazaro, whose here with him today. Lifelong non tobacco user. Denies alcohol or recreational drug use. What is your current living situation?: I presently have a place to live Problems where you live: no known problems Problems where you live details: NA In the past 12 months, utilities in danger of being shut off: no In past 12 months, lack of transportation kept you from medical appts, meetings, work, or getting things needed for daily living: no In the past 12 mos, have been you worried that your food would run out before you had money to buy more?: never true In the past 12 mos, the food you bought just didn't last and you didn't have money to buy more?: never true Smoking Status: Never smoker Do you use any of these nicotine containing products: None Second hand tobacco smoke exposure: No How often do you have a drink containing alcohol: never How often do you have six or more drinks on one occasion: Never AUDIT-C Alcohol total score: 0 Non-prescribed substance use: denies use Caffeine: No How often does anyone, including family, friends and others, physically hurt you: never How often does anyone, including family, friends and others, insult or talk down to you: never How often does anyone, including family, friends and others, threaten you with harm: never How often does anyone, including family, friends and others, scream or curse at you: never service: No Meds Home Medications and Allergies Home Medications Medication Instructions Recorded Confirmed Type amlodipine 5 mg tablet 5 mg PO DAILY 05/16/22 08/13/23 History carvedilol 12.5 mg tablet 12.5 mg PO BID 05/16/22 08/13/23 History hydrochlorothiazide 25 mg tablet 25 mg PO DAILY 05/16/22 08/13/23 History losartan 100 mg tablet 100 mg PO DAILY 05/16/22 08/13/23 History glucosamine sulfate 500 mg capsule 500 mg PO BID 10/18/22 08/13/23 History selenium 200 mcg capsule 200 mcg PO DAILY 10/18/22 08/13/23 History capsicum (cayenne) 450 mg capsule mg PO 08/13/23 History cinnamon bark 500 mg capsule 500 mg PO DAILY 08/13/23 08/13/23 History (Cinnamon) flax seed 08/13/23 History sangeeta (Zingiber officinalis) 250 250 mg PO DAILY 08/13/23 08/13/23 History mg capsule (sangeeta extract) [place] 08/13/23 History multivitamin (Daily Multi-Vitamin 1 tab PO DAILY 08/13/23 08/13/23 History tablet) niacin 100 mg tablet 100 mg PO DAILY 08/13/23 08/13/23 History Home Medication Comments: Many OTC supplements. Allergies Allergy/AdvReac Type Severity Reaction Status Date / Time lisinopril Allergy Cough Verified 10/18/22 11:21 Exam Narrative: Exam Narrative: General: No acute distress. Appears somewhat ill, flushed, awake, but has eyes closed, laying in bed, oriented x3. HEENT: Normocephalic atraumatic, pupils equally round and reactive to light and accommodation. Oropharynx clear. Mucous membranes are moist. No cervical lymphadenopathy, thyromegaly or carotid bruits. No JVD. Cardiovascular: Regular rate and rhythm. Grade 1/6 diastolic murmur loudest at the right upper sternal border. Chest: No increased work of breathing. Clear to auscultation bilaterally. No crackles or wheezes. Abdomen: Bowel sounds present. Large area of ecchymosis across than right mid abdomen. Surgical incisions are clean, dry, and intact. There is no erythema or induration. Abdomen is soft, nondistended, mildly diffusely tender over incisions without rebound tenderness or guarding. No hepatosplenomegaly or masses. Genitourinary: Normal circumcised male genitalia with Domingo catheter in place. Urine is bright yellow. Extremities: No edema, no cyanosis or clubbing. Skin: No jaundice, no pallor, as above in abdomen, otherwise no rashes. Const: Vital Signs, click to edit/add: Vital Signs - 24 hr 08/13/23 12:04 08/13/23 12:20 08/13/23 12:21 Temperature 100.3 F H Pulse Rate Pulse Rate [Pulse Oximeter] 70 Respiratory Rate 22 Blood Pressure Blood Pressure [Le ft Arm] Blood Pressure [Ri ght Upper Arm] 155/57 H Pulse Oximetry 98 95 97 08/13/23 12:40 08/13/23 12:49 08/13/23 13:00 Temperature Pulse Rate 82 93 83 Pulse Rate [Pulse Oximeter] Respiratory Rate Blood Pressure Blood Pressure [Le ft Arm] Blood Pressure [Ri ght Upper Arm] Pulse Oximetry 94 95 96 08/13/23 13:15 08/13/23 13:30 08/13/23 13:44 Temperature Pulse Rate 91 92 85 Pulse Rate [Pulse Oximeter] Respiratory Rate Blood Pressure 151/84 H Blood Pressure [Le ft Arm] Blood Pressure [Ri ght Upper Arm] Pulse Oximetry 96 99 96 08/13/23 13:45 08/13/23 14:00 08/13/23 14:15 Temperature Pulse Rate 82 69 66 Pulse Rate [Pulse Oximeter] Respiratory Rate Blood Pressure Blood Pressure [Le ft Arm] Blood Pressure [Ri ght Upper Arm] Pulse Oximetry 96 93 90 08/13/23 14:30 08/13/23 14:33 08/13/23 14:45 Temperature Pulse Rate 103 H 105 H 102 H Pulse Rate [Pulse Oximeter] Respiratory Rate Blood Pressure 142/72 H Blood Pressure [Le ft Arm] Blood Pressure [Ri ght Upper Arm] Pulse Oximetry 94 96 97 08/13/23 15:00 08/13/23 15:15 08/13/23 15:30 Temperature Pulse Rate 103 H 101 H 103 H Pulse Rate [Pulse Oximeter] Respiratory Rate Blood Pressure Blood Pressure [Le ft Arm] Blood Pressure [Ri ght Upper Arm] Pulse Oximetry 95 95 95 08/13/23 16:00 08/13/23 16:36 Temperature 102.3 F H Pulse Rate Pulse Rate [Pulse Oximeter] 96 Respiratory Rate 18 Blood Pressure Blood Pressure [Le ft Arm] 130/62 Blood Pressure [Ri ght Upper Arm] Pulse Oximetry 96 96 Hospitalist - H&P: Result Labs Labs: Short CBC 08/13/23 Range/Units 12:49 WBC 14.80 H (4.50-11.00) K/uL Hgb 10.7 L (13.5-17.5) gm/dL Hct 32.8 L (37.0-53.0) % Plt Count 259 (140-440) K/uL BMP 08/13/23 12:49 Sodium 139 Potassium 3.7 Chloride 102 Carbon Dioxide 31 BUN 23 Creatinine 1.0 Glucose 136 H Calcium 9.2 Liver Function 08/13/23 Range/Units 12:49 Total Bilirubin 0.6 (0.1-1.5) mg/dL AST 29 (12-35) U/L ALT 30 (4-50) U/L Alkaline Phosphatase 66 (40-150) U/L Albumin 4.1 (3.3-5.0) g/dL Urine 08/13/23 Range/Units 13:44 Urine Color Yellow (Yellow) Urine Appearance Cloudy A (Clear) Urine pH 5.5 (5.0-8.5) Ur Specific [place] 1.025 (1.000-1.030) Urine Protein 1+ A (Negative) Urine Glucose (UA) Negative (Negative) 08/13/2023 EKG: Normal sinus rhythm, 80 beats per minute, right bundle-branch block, left anterior fascicular block, bifascicular block, septal infarct, age undetermined. Ordering Physician: Crystal Tate M.D. Date of Service: 08/13/23 Procedure(s): XR chest 1V portable Accession Number(s): [id number] cc: Joao Beach M.D.; Crystal Tate M.D.~ For Patients: As a result of the Cures Act, medical imaging exams and procedure reports are released immediately into your electronic medical record. You may view this report before your referring provider. If you have questions, please contact your health care provider. INDICATION: Fever COMPARISON: None. TECHNIQUE: 1 view chest radiograph. FINDINGS: Lung volumes are good. No focal consolidations. No pulmonary edema. No pleural effusion. No pneumothorax. No pneumomediastinum. Normal cardiomediastinal silhouette. Bones: Normal for age. IMPRESSION: Lungs clear. Normal chest radiograph. Dictated by Virginia Resendiz MD @ 08/13/2023 1:30:49 PM (Electronically Signed) Assessment and Plan Assessment and plan (1) Status post prostatectomy: Problem comment: Robotic Prostatectomy - Dr Kay To Status: Acute (2) Acute UTI: Status: Acute (3) Domingo catheter in place: Status: Acute Plan 78-year-old male who is status post prostatectomy just under 2 weeks ago and still has his Domingo catheter in place. He is now febrile with an abnormal urinalysis indicating probable urinary tract infection. Vital signs are otherwise stable, without evidence sepsis. Urine culture is pending. I spoke with Dr. Lima who was on-call for Urology at [facility]. He was this patient's surgeon for the prostatectomy. Dr. Lima recommended no change to the current Domingo catheter, obtaining a CT of the abdomen and pelvis with contrast, urine culture, blood culture, and treating with ciprofloxacin. If there is evidence of hematoma on CT, patient may need to be transferred for the possibility of infected hematoma.
--- NOTE | 2023-08-13 17:27 | CRLHL7_ITS ---
For Patients: As a result of the 21st Century Cures Act, medical imaging exams and procedure reports are released immediately into your electronic medical record. You may view this report before your referring provider. If you have questions, please contact your health care provider. INDICATION: Prostatectomy 08/02/2023, fever, anterior abdominal wall ecchymosis COMPARISON: 05/16/2022 TECHNIQUE: CT of the abdomen and pelvis after the administration of intravenous contrast. Multiplanar axial, coronal, and sagittal reformats were reconstructed. Contrast: 89 mL Isovue 370 intravenously. Oral contrast was not administered. FINDINGS: Lung bases: Mild bibasilar atelectasis Liver: Normal. No masses. Normal vasculature. Gallbladder and biliary tree: Cholecystectomy. No biliary duct dilation. Pancreas: Normal. Spleen: Normal. Normal size. Adrenal glands: Normal. No nodules. Kidneys and bladder: Normal size and position. No cyst or mass. No calculi. No urinary tract dilation. The urinary bladder is decompressed with a Maza catheter. Moderately thick bladder wall.. GI: There is a loop of inflamed small bowel that passes between the inferior sigmoid colon in the dome of the bladder. This loop present mild mucosal hyperenhancement and air-fluid levels. No focal free air or abscess. No other abnormal appearing bowel wall. There is a moderate stool burden. Vessels: Aorta and major branches, including the mesenteric vessels: Patent. Normal caliber. Moderate atherosclerotic plaques. IVC and tributaries: Normal. Mesenteric and portal veins: Normal. Peritoneum: Trace pelvic free fluid without significant peritoneal thickening or enhancement. There is a small to moderate amount of intra-abdominal free air, primarily seen superiorly and anteriorly up around the liver and epigastric abdominal wall. Lymph nodes: No adenopathy. Pelvis: Postop prostatectomy. There is some generic edema in the extraperitoneal pelvic fat and in the perirectal fat. Bones: No fractures. No focal bone lesions. Multilevel disc and facet degeneration. Minimal anterolisthesis L4 on L5. Abdominal wall: Subcutaneous emphysema in the upper anterior thighs, groin, and in the abdominal wall extending up into the chest. There is asymmetric edema involving the anterior inferior abdominal wall muscles and some asymmetric fluid in the overlying abdominal wall fat. No well-circumscribed or drainable appearing collection. No focal subcutaneous emphysema in the area. No abdominal wall hernia. IMPRESSION: 1. Intraperitoneal free air and subcutaneous emphysema is slightly greater than would be expected 2 weeks after an operation, but no obvious source is identified. 2. Asymmetric edema in the right lateral abdominal wall, both the muscular abdominal wall in the overlying subcutaneous fat, without a discrete hematoma or drainable abscess. 3. Mild inflammation in the operative site without an abscess or collection. Please note that all CT scans at this facility use dose modulation, iterative reconstruction, and/or weight-based dosing when appropriate to reduce radiation dose to as low as reasonably achievable. Dictated by Virginia Resendiz MD @ 08/13/2023 6:37:29 PM (Electronically Signed)
[2023-08-13] MEDS: ACETAMINOPHEN 325 MG TABLET PO (19:29)
[2023-08-13] MEDS: CIPROFLOXACIN 400 MG/200 ML PIGGYBACK 200 MG IVPB (19:30)
[2023-08-13] MEDS: LOSARTAN POTASSIUM 50 MG TABLET 100 MG PO (20:16)
[2023-08-13] MEDS: AMLODIPINE 5 MG TABLET PO (20:16)
[2023-08-13] MEDS: carvediloL 6.25 MG TABLET 12.5 MG PO (20:16)
[2023-08-13] MEDS: SODIUM CHLORIDE 0.9 % (FLUSH) 10 ML SYRINGE 5 ML IVF (20:17)
[2023-08-13] MEDS: hydroCHLOROthiazide 25 MG TABLET PO (20:17)
[2023-08-13] MEDS: 0.9 % SODIUM CHLORIDE 500 ML 500 ML 1000 ML IV (21:20)
--- NOTE | 2023-08-13 22:20 | PC.NURSE ---
Shift [id number]- Patient arrives to the unit at approximately 1600 with . Bruise to right lower side noted- patient and state this was due to his recent prostatectomy. He does not complain of pain. Maza is draining mostly-clear to clear yellow urine with rare small blood clot. His temperature is elevated throughout evening- tylenol, fluids, and antibiotics administered- see eMAR- with some temperature response. He is up with SBA.
[2023-08-14] VITALS (11 sets, daily range): BP systolic 105–149; BP diastolic 45–65; PULSE 68–83; RESP 16–18; TEMP 37.1–38.3; O2SAT 93–97
[2023-08-14] MEDS: ACETAMINOPHEN 325 MG TABLET PO ×2 (03:16→09:12)
--- NOTE | 2023-08-14 05:04 | PC.NURSE ---
end of shift. pt has been very pleasant. no pain. temp was 99.1 and 100.9 and he got po Tylenol. he is not symptotic with temperature. Bruise to right lower side noted. Maza is draining clear yellow urine with some sediment. He is up with SBA. he is drinking and voiding and no BM.
[2023-08-14 06:14] LABS: Basophils Percent Auto 0.1 % (0.0-3.0); Eosinophils Percent Auto 0.2 % (0.0-7.0); Hematocrit 28.1 % (37.0-53.0); Hemoglobin* 9.3 gm/dL (13.5-17.5); Immature Granulocytes Pct Auto 0.3 %; Lymphocytes Percent Auto 5.4 % (20-44); Mean Corpuscular HGB Conc 33 gm/dL (32-36); Mean Corpuscular Hemoglobin 33 pg (26-34); Mean Corpuscular Volume 100 fL (80-100); Monocytes Percent Auto 6.8 % (0.0-11.0); Neutrophils Percent Auto 87.2 % (42.0-72.0); Platelet Count* 222 K/uL (140-440); Red Blood Count 2.81 m/uL (4.30-5.90); White Blood Count* 19.07 K/uL (4.50-11.00)
[2023-08-14 06:18] LABS: Slide Review Reflex No
[2023-08-14 06:28] LABS: Chloride* 103 mmol/L (96-114); Potassium* 3.5 mmol/L (3.6-5.1); Sodium* 137 mmol/L (135-149)
[2023-08-14 06:31] LABS: Est. Creatinine Clearance* 64.89; Estimated Glomerular Filt Rate 78 ml/min
[2023-08-14 06:32] LABS: Anion Gap 7 mEq/L (7-15); Blood Urea Nitrogen* 17 mg/dL (7-30); Calcium* 8.2 mg/dL (8.4-10.6); Carbon Dioxide* 27 mmol/L (20-32); Glucose* 128 mg/dL (60-115)
[2023-08-14 06:47] LABS: C Reactive Protein* 17.2 mg/dL (0.5-1.0)
[2023-08-14] MEDS: carvediloL 6.25 MG TABLET 12.5 MG PO ×2 (09:06→21:14)
[2023-08-14] MEDS: cefTRIAXone 1 GM in 0.9 % SODIUM CHLORIDE Mini-bag 100 ML IVPB (09:07)
[2023-08-14] MEDS: SODIUM CHLORIDE 0.9 % (FLUSH) 10 ML SYRINGE 5 ML IVF ×2 (09:07→21:15)
--- NOTE | 2023-08-14 10:01 | PM.IMPN1 ---
Progress Note: A&P Assessment and plan (1) Acute UTI: Problem details: -per [facility], continue Cipro 500mg po bid (given indwelling catheter) -given ongoing fevers, bump in WBC and CRP, will add Ceftriaxone (first dose in ED) -UC preliminarily growing gram negative rods, pending. BCx2 pending -will give 1L IVF this morning. Monitor for fluid overload -Tylenol as needed for fevers Status: Acute (2) Status post prostatectomy: Problem details: -S/p Robotic Prostatectomy - Dr Bullard, [facility] on 08/02/23. On admission, as discussed with Dr. Bullard, recommended no change to the current Maza catheter, obtaining a CT of the abdomen and pelvis with contrast, urine culture, blood culture, and treating with ciprofloxacin. No concern for free air as reported on CT. -Indwelling Maza catheter in place, scheduled to be removed on 08/16 at [facility] Status: Acute (3) Essential hypertension: Problem details: -continue home medications Status: Chronic Time Spent With Patient Total time spent: Total time spent caring for the patient today was 45 minutes. This includes time spent for the visit reviewing the chart, time spent during the visit, time spent after the visit and documentation and planning in coordination of care. Subjective Date Seen: 08/14/23 Interval history: Patient reports feeling pretty well this morning. Denies headache or dizziness. Denies chest pain or shortness of breath. Tolerating orals without nausea vomiting. Overnight, had a temperature of 100.9?. Denies feeling feverish or chills. No events reported otherwise. Exam Narrative: Exam Narrative: PHYSICAL EXAM General: Pleasant, conversant, NAD HEENT: Normocephalic, atraumatic, sclera white, EOMI, oral mucosa moist Cardiovascular: RRR, S1S2. No pitting edema Pulmonary: CTA bilaterally without rhonchi, rales, expiratory wheezes. No dyspnea Neurological: Alert, answering questions appropriately, cranial nerves intact, no focal findings Extremities: No gross joint deformity or swelling. AROMI. Neurovascularly intact Skin: Warm, dry. Const: Vital Signs, click to edit/add: Vital Signs - 24 hr 08/13/23 12:04 08/13/23 12:20 08/13/23 12:21 Temperature 100.3 F H Pulse Rate Pulse Rate [Left A pical] Pulse Rate [Pulse Oximeter] 70 Respiratory Rate 22 Blood Pressure Blood Pressure [Le ft Arm] Blood Pressure [Ri ght Upper Arm] 155/57 H Pulse Oximetry 98 95 97 Oxygen Delivery Me thod 08/13/23 12:40 08/13/23 12:49 08/13/23 13:00 Temperature Pulse Rate 82 93 83 Pulse Rate [Left A pical] Pulse Rate [Pulse Oximeter] Respiratory Rate Blood Pressure Blood Pressure [Le ft Arm] Blood Pressure [Ri ght Upper Arm] Pulse Oximetry 94 95 96 Oxygen Delivery Me thod 08/13/23 13:15 08/13/23 13:30 08/13/23 13:44 Temperature Pulse Rate 91 92 85 Pulse Rate [Left A pical] Pulse Rate [Pulse Oximeter] Respiratory Rate Blood Pressure 151/84 H Blood Pressure [Le ft Arm] Blood Pressure [Ri ght Upper Arm] Pulse Oximetry 96 99 96 Oxygen Delivery Me thod 08/13/23 13:45 08/13/23 14:00 08/13/23 14:15 Temperature Pulse Rate 82 69 66 Pulse Rate [Left A pical] Pulse Rate [Pulse Oximeter] Respiratory Rate Blood Pressure Blood Pressure [Le ft Arm] Blood Pressure [Ri ght Upper Arm] Pulse Oximetry 96 93 90 Oxygen Delivery Me thod 08/13/23 14:30 08/13/23 14:33 08/13/23 14:45 Temperature Pulse Rate 103 H 105 H 102 H Pulse Rate [Left A pical] Pulse Rate [Pulse Oximeter] Respiratory Rate Blood Pressure 142/72 H Blood Pressure [Le ft Arm] Blood Pressure [Ri ght Upper Arm] Pulse Oximetry 94 96 97 Oxygen Delivery Me thod 08/13/23 15:00 08/13/23 15:15 08/13/23 15:30 Temperature Pulse Rate 103 H 101 H 103 H Pulse Rate [Left A pical] Pulse Rate [Pulse Oximeter] Respiratory Rate Blood Pressure Blood Pressure [Le ft Arm] Blood Pressure [Ri ght Upper Arm] Pulse Oximetry 95 95 95 Oxygen Delivery Me thod 08/13/23 16:00 08/13/23 16:36 08/13/23 18:13 Temperature 102.3 F H 101.8 F H Pulse Rate Pulse Rate [Left A pical] Pulse Rate [Pulse Oximeter] 96 Respiratory Rate 18 Blood Pressure Blood Pressure [Le ft Arm] 130/62 Blood Pressure [Ri ght Upper Arm] Pulse Oximetry 96 96 Oxygen Delivery Me thod 08/13/23 19:04 08/13/23 21:01 08/13/23 23:30 Temperature 102.3 F H 101.1 F H Pulse Rate Pulse Rate [Left A pical] Pulse Rate [Pulse Oximeter] 95 Respiratory Rate 18 18 Blood Pressure Blood Pressure [Le ft Arm] 141/67 H Blood Pressure [Ri ght Upper Arm] Pulse Oximetry 94 94 Oxygen Delivery Me thod Room Air Room Air 08/13/23 23:30 08/13/23 23:30 08/14/23 03:00 Temperature 99.1 F 100.9 F H Pulse Rate Pulse Rate [Left A pical] Pulse Rate [Pulse Oximeter] 80 80 75 Respiratory Rate 18 18 18 Blood Pressure Blood Pressure [Le ft Arm] 119/50 L 111/45 L Blood Pressure [Ri ght Upper Arm] Pulse Oximetry 94 93 Oxygen Delivery Me thod Room Air Room Air 08/14/23 03:16 08/14/23 07:30 08/14/23 07:30 Temperature 100.9 F H 99.3 F Pulse Rate Pulse Rate [Left A pical] 70 Pulse Rate [Pulse Oximeter] 70 Respiratory Rate 16 16 Blood Pressure Blood Pressure [Le ft Arm] 108/46 L Blood Pressure [Ri ght Upper Arm] Pulse Oximetry 94 94 Oxygen Delivery Me thod Room Air Room Air 08/14/23 09:12 Temperature 99.3 F Pulse Rate Pulse Rate [Left A pical] Pulse Rate [Pulse Oximeter] Respiratory Rate Blood Pressure Blood Pressure [Le ft Arm] Blood Pressure [Ri ght Upper Arm] Pulse Oximetry Oxygen Delivery Me thod Labs Labs: Laboratory Results - last 24 hr 08/13/23 08/13/23 08/13/23 12:16 12:49 13:44 WBC 14.80 H RBC 3.23 L Hgb 10.7 L Hct 32.8 L MCV 102 H MCH 33 MCHC 33 RDW Coeff of [place] 13.0 Plt Count 259 Neut % (Auto) 84.6 H Lymph % (Auto) 6.2 L [place] % (Auto) 7.6 Eos % (Auto) 1.3 Baso % (Auto) 0.1 Neut # (Auto) 12.50 H Lymph # (Auto) 0.90 [place] # (Auto) 1.10 H Eos # (Auto) 0.20 Baso # (Auto) 0.00 Abs Immat Gran (auto) 0.00 Imm/Tot Granulo (auto) 0.2 Sodium 139 Potassium 3.7 Chloride 102 Carbon Dioxide 31 Anion Gap 6 L BUN 23 Creatinine 1.0 Estimated Creat Clear 64.89 Estimated GFR 78 Glucose 136 H Lactate 1.1 Calcium 9.2 Total Bilirubin 0.6 AST 29 ALT 30 Alkaline Phosphatase 66 C-Reactive Protein 7.5 H Total Protein 7.1 Albumin 4.1 Urine Color Yellow Urine Appearance Cloudy A Urine pH 5.5 Ur Specific [place] 1.025 Urine Protein 1+ A Urine Glucose (UA) Negative Urine Ketones Negative Urine Blood 3+ A Urine Nitrite Negative Urine Bilirubin Negative Urine Urobilinogen 0.2 Ur Leukocyte Esterase 1+ A Urine RBC 25-50 A Urine WBC 50-100 A Ur Squamous Epith Cells Moderate A Urine Bacteria Moderate A SARS-CoV-2 (PCR) Negative SARS-CoV-2 Influenza Type A (PCR) Negative PCR FLU A Influenza Type B (PCR) Negative PCR FLU B RSV (PCR) Negative PCR RSV 08/14/23 05:58 WBC 19.07 H RBC 2.81 L Hgb 9.3 L Hct 28.1 L MCV 100 MCH 33 MCHC 33 RDW Coeff of [place] 13.0 Plt Count 222 Neut % (Auto) 87.2 H Lymph % (Auto) 5.4 L [place] % (Auto) 6.8 Eos % (Auto) 0.2 Baso % (Auto) 0.1 Neut # (Auto) 16.60 H Lymph # (Auto) 1.00 [place] # (Auto) 1.30 H Eos # (Auto) 0.00 Baso # (Auto) 0.00 Abs Immat Gran (auto) 0.10 Imm/Tot Granulo (auto) 0.3 Sodium 137 Potassium 3.5 L Chloride 103 Carbon Dioxide 27 Anion Gap 7 BUN 17 Creatinine 1.0 Estimated Creat Clear 64.89 Estimated GFR 78 Glucose 128 H Lactate Calcium 8.2 L Total Bilirubin AST ALT Alkaline Phosphatase C-Reactive Protein 17.2 H Total Protein Albumin Urine Color Urine Appearance Urine pH Ur Specific [place] Urine Protein Urine Glucose (UA) Urine Ketones Urine Blood Urine Nitrite Urine Bilirubin Urine Urobilinogen Ur Leukocyte Esterase Urine RBC Urine WBC Ur Squamous Epith Cells Urine Bacteria SARS-CoV-2 (PCR) Influenza Type A (PCR) Influenza Type B (PCR) RSV (PCR)
[2023-08-14] MEDS: 0.9 % SODIUM CHLORIDE 1000 ml 1,000 ML 500 ML IV (10:05)
[2023-08-14] MEDS: CIPROFLOXACIN 500 MG TABLET PO ×2 (10:35→21:14)
--- NOTE | 2023-08-14 15:32 | PC.NURSE ---
Afshan by Ria Bell hospitalist. IV ATB infused w/o difficulty. Cipro resumed PO per urology consult. Pt received NS 500cc over 2 hours mid-morning. Highest temp on day shift 99.3. Nursing will continue to monitor. Report to Darin ELLISON for evening shift.
--- NOTE | 2023-08-14 18:29 | PC.NURSE ---
end of shift. pt is still very pleasant. no pain. temp was 98.8 Bruise to right lower side noted. Maza is draining clear yellow urine with some sediment. He is up with SBA. he is drinking and voiding and ating and no BM.
[2023-08-14] MEDS: hydroCHLOROthiazide 25 MG TABLET PO (21:14)
[2023-08-14] MEDS: AMLODIPINE 5 MG TABLET PO (21:15)
[2023-08-14] MEDS: LOSARTAN POTASSIUM 50 MG TABLET 100 MG PO (21:15)
[2023-08-14] MEDS: ACETAMINOPHEN 500 MG TABLET 1000 MG PO (21:17)
[2023-08-15 03:25] VITALS: BP 123/61; PULSE 61; RESP 16; TEMP 36.8; O2SAT 96
--- NOTE | 2023-08-15 05:13 | PC.NURSE ---
Pt alert and oriented x3. Pt had elevated temp of 99.5 F, managed with PRN Tylenol temp @0325 was 98.2 F. Pt denies pain, chest pain, N/V, and SOB. Pt reported loose stools x2, once during morning 08/14/28 and this morning 08/15/23, pt educated on antibiotic side effects and to continue to monitor. Pt's Maza is patent and draining. Pt is up ad katey in room, tolerating regular diet and slept throughout most of night, night uneventful.
[2023-08-15 07:45] VITALS: BP 119/61; PULSE 64; RESP 16; TEMP 37.2; O2SAT 96
[2023-08-15 08:27] LABS: Basophils Percent Auto 0.3 % (0.0-3.0); Eosinophils Percent Auto 1.7 % (0.0-7.0); Hematocrit 28.7 % (37.0-53.0); Hemoglobin* 9.4 gm/dL (13.5-17.5); Immature Granulocytes Pct Auto 0.2 %; Lymphocytes Percent Auto 10.7 % (20-44); Mean Corpuscular HGB Conc 33 gm/dL (32-36); Mean Corpuscular Hemoglobin 33 pg (26-34); Mean Corpuscular Volume 100 fL (80-100); Monocytes Percent Auto 8.9 % (0.0-11.0); Neutrophils Percent Auto 78.2 % (42.0-72.0); Platelet Count* 232 K/uL (140-440); RDW Coefficient of Variation % 12.8 % (11.5-15.5); Red Blood Count 2.87 m/uL (4.30-5.90)
[2023-08-15] MEDS: cefTRIAXone 1 GM in 0.9 % SODIUM CHLORIDE Mini-bag 100 ML IVPB (08:39)
[2023-08-15] MEDS: SODIUM CHLORIDE 0.9 % (FLUSH) 10 ML SYRINGE 5 ML IVF (08:40)
[2023-08-15] MEDS: carvediloL 6.25 MG TABLET 12.5 MG PO (08:40)
[2023-08-15] MEDS: CIPROFLOXACIN 500 MG TABLET PO (08:40)
[2023-08-15 08:49] LABS: Chloride* 106 mmol/L (96-114); Potassium* 3.6 mmol/L (3.6-5.1); Sodium* 139 mmol/L (135-149)
[2023-08-15 08:52] LABS: Est. Creatinine Clearance* 64.89; Estimated Glomerular Filt Rate 78 ml/min
[2023-08-15 08:53] LABS: Anion Gap 5 mEq/L (7-15); Blood Urea Nitrogen* 16 mg/dL (7-30); Calcium* 8.5 mg/dL (8.4-10.6); Carbon Dioxide* 28 mmol/L (20-32); Glucose* 106 mg/dL (60-115)
[2023-08-15 09:08] LABS: Slide Review Reflex No
[2023-08-15 09:23] LABS: C Reactive Protein* 20.1 mg/dL (0.5-1.0)
[2023-08-15 11:00] VITALS: BP 115/59; PULSE 68; RESP 18; TEMP 36.7; O2SAT 95
--- NOTE | 2023-08-15 11:06 | PM.DS1 ---
DS: Providers Provider Date Seen: 08/15/23 Date of admission: 08/13/23 15:43 Primary care physician: Joao Beach MD Admitting Clinician: Vicente Hernandez MD Attending Physician on discharge: Ria Bell [facility] Date of Discharge: 08/15/23 DS: Diagnosis Discharge Diagnosis (1) Acute UTI: Status: Acute Problem details: -postoperative, indwelling catheter -urine culture grew Morganella morganii, sensitive to fluoroquinolones and ceftriaxone. Completed 3 doses of IV ceftriaxone. Will continue on oral ciprofloxacin 500mg b.i.d. to complete a 14 day course. -blood cultures NGTD on day of discharge. Leukocytosis down trending. CRP remained elevated. Has remained afebrile for past 24 hours. -has follow-up appointment with [facility] tomorrow, 08/16/2023, for Domingo removal, outpatient follow-up. (2) Status post prostatectomy: Status: Acute Problem details: -S/p Robotic Prostatectomy - Dr Bullard, [facility] on 08/02/23. On admission, as discussed with Dr. Bullard, recommended no change to the current Domingo catheter, obtaining a CT of the abdomen and pelvis with contrast, urine culture, blood culture, and treating with ciprofloxacin. No concern for free air as reported on CT. -Indwelling Domingo catheter in place, scheduled to be removed on 08/16 at [facility] (3) Essential hypertension: Status: Chronic Problem details: -continued home medications DS: Summary Hospital Course Hospital Course: [age] year old male past medical history significant for hypertension, tremor, status post prostatectomy (07/2023) was admitted to the medical floor for further management postop acute cystitis in setting of recent prostatectomy with indwelling catheter. Course of care and details as noted above. Remainder of chronic medical comorbidities were monitored and managed with home medications. Status at Discharge Functional status at discharge: independent ambulation Overall status at discharge: patient is back to baseline Time Spent with Patient Time attestation: Total time spent providing and/or coordinating discharge services: Time spent: Greater than 30 minutes Exam Narrative: Exam Narrative: PHYSICAL EXAM General: Sitting up in chair, pleasant, conversant, NAD Cardiovascular: RRR, S1S2. No pitting edema Pulmonary: CTA bilaterally without rhonchi, rales, expiratory wheezes. No dyspnea Neurological: Alert, answering questions appropriately, cranial nerves intact, no focal findings Extremities: No gross joint deformity or swelling. AROMI. Neurovascularly intact Skin: Warm, dry. Const: Vital Signs, click to edit/add: Vital Signs - 24 hr 08/14/23 15:15 08/14/23 15:15 08/14/23 15:44 Temperature 98.9 F Pulse Rate [Pulse Oximeter] 70 70 Respiratory Rate 16 16 16 Blood Pressure [Le ft Arm] 111/58 L Pulse Oximetry 97 96 Oxygen Delivery Me thod Room Air Room Air 08/14/23 21:10 08/14/23 21:17 08/14/23 22:45 Temperature 99.5 F 99.5 F Pulse Rate [Pulse Oximeter] 83 Respiratory Rate 18 16 Blood Pressure [Le ft Arm] 149/65 H Pulse Oximetry 96 94 Oxygen Delivery Me thod 08/14/23 22:45 08/14/23 22:45 08/15/23 03:25 Temperature 99.2 F 99.2 F 98.2 F Pulse Rate [Pulse Oximeter] 75 61 Respiratory Rate 16 16 Blood Pressure [Le ft Arm] 125/52 L 123/61 Pulse Oximetry 94 96 Oxygen Delivery Me thod Room Air 08/15/23 07:45 08/15/23 07:45 08/15/23 07:45 Temperature 99.0 F Pulse Rate [Pulse Oximeter] 64 64 Respiratory Rate 16 16 16 Blood Pressure [Le ft Arm] 119/61 Pulse Oximetry 96 96 Oxygen Delivery Me thod Room Air Room Air DS: Data Data Completed and Pending Completed studies during hospitalization: Urine Culture* Final ML Organism 1 Morganella morganii Ur Bowie Count >100,000 CFU/ml M morganii KENNEDI RX --------- --- Ampicillin >=32 R Ampicillin/Sulbactam >=32 R Cefazolin >=64 R Cefepime <=1 S Cefoxitin 8 S Ceftazidime <=1 S Ceftriaxone <=1 S Ciprofloxacin <=0.25 S Ertapenem <=0.5 S Gentamicin <=1 S Imipenem 2 I Levofloxacin <=0.12 S Nitrofurantoin 128 R Tobramycin <=1 S Trimethoprim/Sulfamethoxazole <=20 S Piperacillin/Tazobactam <=4 S Labs on day of discharge: Labs from last 24 hours 08/15/23 08:07 WBC 11.70 H RBC 2.87 L Hgb 9.4 L Hct 28.7 L MCV 100 MCH 33 MCHC 33 RDW Coeff of Keely 12.8 Plt Count 232 Neut % (Auto) 78.2 H Lymph % (Auto) 10.7 L [place] % (Auto) 8.9 Eos % (Auto) 1.7 Baso % (Auto) 0.3 Neut # (Auto) 9.10 H Lymph # (Auto) 1.30 [place] # (Auto) 1.00 H Eos # (Auto) 0.20 Baso # (Auto) 0.00 Abs Immat Gran (auto) 0.00 Imm/Tot Granulo (auto) 0.2 Sodium 139 Potassium 3.6 Chloride 106 Carbon Dioxide 28 Anion Gap 5 L BUN 16 Creatinine 1.0 Estimated Creat Clear 64.89 Estimated GFR 78 Glucose 106 Calcium 8.5 C-Reactive Protein 20.1 H Preliminary micro results at discharge 08/13/23 17:45 Blood Culture - Preliminary Blood NO GROWTH AFTER 24 HOURS 08/13/23 17:39 Blood Culture - Preliminary Blood NO GROWTH AFTER [address] scan - abdomen: Attestation: I have reviewed the pertinent imaging results. My impression: Discussed findings with [facility] on admission Radiologist's impression: FINDINGS: Lung bases: Mild bibasilar atelectasis Liver: Normal. No masses. Normal vasculature. Gallbladder and biliary tree: Cholecystectomy. No biliary duct dilation. Pancreas: Normal. Spleen: Normal. Normal size. Adrenal glands: Normal. No nodules. Kidneys and bladder: Normal size and position. No cyst or mass. No calculi. No urinary tract dilation. The urinary bladder is decompressed with a Domingo catheter. Moderately thick bladder wall.. GI: There is a loop of inflamed small bowel that passes between the inferior sigmoid colon in the dome of the bladder. This loop present mild mucosal hyperenhancement and air-fluid levels. No focal free air or abscess. No other abnormal appearing bowel wall. There is a moderate stool burden. Vessels: Aorta and major branches, including the mesenteric vessels: Patent. Normal caliber. Moderate atherosclerotic plaques. IVC and tributaries: Normal. Mesenteric and portal veins: Normal. Peritoneum: Trace pelvic free fluid without significant peritoneal thickening or enhancement. There is a small to moderate amount of intra-abdominal free air, primarily seen superiorly and anteriorly up around the liver and epigastric abdominal wall. Lymph nodes: No adenopathy. Pelvis: Postop prostatectomy. There is some generic edema in the extraperitoneal pelvic fat and in the perirectal fat. Bones: No fractures. No focal bone lesions. Multilevel disc and facet degeneration. Minimal anterolisthesis L4 on L5. Abdominal wall: Subcutaneous emphysema in the upper anterior thighs, groin, and in the abdominal wall extending up into the chest. There is asymmetric edema involving the anterior inferior abdominal wall muscles and some asymmetric fluid in the overlying abdominal wall fat. No well-circumscribed or drainable appearing collection. No focal subcutaneous emphysema in the area. No abdominal wall hernia. IMPRESSION: 1. Intraperitoneal free air and subcutaneous emphysema is slightly greater than would be expected 2 weeks after an operation, but no obvious source is identified. 2. Asymmetric edema in the right lateral abdominal wall, both the muscular abdominal wall in the overlying subcutaneous fat, without a discrete hematoma or drainable abscess. 3. Mild inflammation in the operative site without an abscess or collection. Chest x-ray: Attestation: I have reviewed the pertinent imaging results. Radiologist's impression: FINDINGS: Lung volumes are good. No focal consolidations. No pulmonary edema. No pleural effusion. No pneumothorax. No pneumomediastinum. Normal cardiomediastinal silhouette. Bones: Normal for age. IMPRESSION: Lungs clear. Normal chest radiograph. Discharge Plan Discharge Disposition: Home, Self-Care Date of Admission: 08/13/23 15:43 Attending Provider on Discharge: Ria Bell Primary Care Provider: Joao Beach Condition: Improved Anticipated Discharge Date/Time: 08/15/23 10:56 Discharge Medications: New ciprofloxacin HCl 500 mg Tablet 500 mg PO BID 13 Days Qty: 26 0RF Continued glucosamine sulfate 500 mg capsule 500 mg PO BID Rx Instructions: administer with meals selenium 200 mcg capsule 200 mcg PO DAILY carvedilol 12.5 mg tablet 12.5 mg PO BID amlodipine 5 mg tablet 5 mg PO HS hydrochlorothiazide 25 mg tablet 25 mg PO HS losartan 100 mg tablet 100 mg PO HS multivitamin [Daily Multi-Vitamin] Tablet 1 tab PO DAILY sangeeta extract 250 mg capsule 250 mg PO DAILY cinnamon bark [Cinnamon] 500 mg capsule 500 mg PO DAILY flax seed capsicum (cayenne) 450 mg capsule 450 mg PO DAILY melaluka niacin 100 mg tablet 100 mg PO DAILY Discharge Orders: Discharge Order (Routine); Ordered 08/15/23 Ordered By: Ria Bell Patient Education: Urinary Tract Infection in Men (GEN) Additional Instructions: Continue Cipro as prescribed. Follow up with [facility] tomorrow as scheduled for outpatient follow up and domingo removal Activity Level: No Restrictions Discharge Diet: Regular Follow Up Appointments: Joao Beach MD [Primary Care Provider] - Forms: [employer] Info Instructions
--- NOTE | 2023-08-15 12:00 | PC.NURSE ---
discharge. pt is still very pleasant. no pain. he is eating drinking and voiding. Maza is patent. Bruise to right lower side noted. Maza is draining clear yellow urine with some sediment. He is up with [facility]. went over discharge packet with pt. went over meds, instruction and education. pt went over and signed personal belonging sheet. pt sign the [employer]. all belongings and paperwork where sent with pt. w/c ride was offered and pt declined. he walked out with his .
== END 2023-08-15 12:00 | disposition home or self-care (01) ==
LOC: ED 14:28 → MEDSURG 15:47
PROVIDERS: Family Medicine; Admitting Provider Family Medicine; Emergency Provider Family Medicine; PCP Family Medicine; Visit Provider Family Medicine
DX: N39.0 Urinary tract infection, site not specified (principal); R79.82 Elevated C-reactive protein (CRP); D72.829 Elevated white blood cell count, unspecified; R50.9 Fever, unspecified; Z96.0 Presence of urogenital implants; Z01.818 Encounter for other preprocedural examination; I10 Essential (primary) hypertension; B96.4 Proteus (mirabilis) (morganii) as the cause of diseases classified elsewhere; Z16.39 Resistance to other specified antimicrobial drug; I25.10 Atherosclerotic heart disease of native coronary artery without angina pectoris; R39.89 Other symptoms and signs involving the genitourinary system; R25.1 Tremor, unspecified; Z79.01 Long term (current) use of anticoagulants; I45.2 Bifascicular block; Z85.46 Personal history of malignant neoplasm of prostate; Z92.89 Personal history of other medical treatment; Z87.19 Personal history of other diseases of the digestive system; Z90.49 Acquired absence of other specified parts of digestive tract; Z90.79 Acquired absence of other genital organ(s); Z90.89 Acquired absence of other organs; Z98.890 Other specified postprocedural states; Z86.79 Personal history of other diseases of the circulatory system
CPT/HCPCS: 36415; 51701; 71045; 74177; 80048; 80053; 81001; 83605; 85025; 86140; 87040; 87086; 87186; 87631; 93005; 94761; 96361; 96365; 96366; 96375; 99284; 99285; A9270; G0378; J0696; J0744; J7030; J7120; Q9967

== ENCOUNTER 2025-06-26 07:34 | Emergency (ER) | payer MEDICARE, BC, SELFPAY ==
[2025-06-26] VITALS (30 sets, daily range): BP systolic 122–149; BP diastolic 62–82; PULSE 69–90; RESP 7–23; TEMP 36.4; O2SAT 91–99; BMI 25.1
--- NOTE | 2025-06-26 07:45 | CRLHL7_ITS ---
For Patients: As a result of the Cures Act, medical imaging exams and procedure reports are released immediately into your electronic medical record. You may view this report before your referring provider. If you have questions, please contact your health care provider. INDICATION: Altered mental status. TECHNIQUE: CT head without contrast. COMPARISON: None. FINDINGS: Mild ill-defined low-attenuation in the periventricular and subcortical white matter. Intracranial atherosclerosis. No mass effect or midline shift. No hydrocephalus. No CT evidence of acute hemorrhage or infarction. No abnormal extra-axial fluid collection. Bone windows show no acute calvarial fracture. Paranasal sinuses and orbits as imaged are unremarkable. IMPRESSION: 1. No acute intracranial abnormality. 2. Mild changes of chronic small vessel ischemic disease. Dictated by Christian Augustin MD @ 06/26/2025 8:20:26 AM Please note that all CT scans at this facility use dose modulation, iterative reconstruction, and/or weight-based dosing when appropriate to reduce radiation dose to as low as reasonably achievable. Dictated by: Christian Augustin MD @ 06/26/2025 08:20:38 (Electronically Signed)
--- NOTE | 2025-06-26 08:15 | ED.GENADULT ---
HPI - General Adult General Chief complaint: Altered Mental Status Stated complaint: altered mental status Time Seen by Provider: 06/26/25 08:08 History of Present Illness HPI narrative: Patient was fine when he went to bed last night. woke patient up at 6am and couldn' t get him to wake up. He was gurgling and jerking. She called 911. Police arrived first and felt he was left sided weak. When EMS arrived, their stroke scale was 0. Blood sugar was 126. Patient was alert but disoriented. states this is not him . Had an episode like this back in November. not here at the moment but will be coming and is a better historian than patient. 80-year-old man presenting to the emergency department with concern of altered mental status. Was well upon going to bed last night but this morning when spouse tried to wake him she could get him to respond. Was kind of gurgling. No clear focal deficits. Not actually describe with trouble breathing. He was after a little bit began to jerk/moved in his extremities. Just was out of it. This lasted about 20 minutes. There was a syncopal event in November of this year resulting in a pacer placement. Mr. Hull is not having any chest pain or other pain. No shortness of breath. He feels otherwise fine at this time. No fever. Headache. No visual disturbances. Has not been diagnosed with any seizure. History also of ischemic cardiomyopathy. I am catching up with Mr. Hull after CT head has already been done. He went directly thereafter presentation to the emergency department via EMS. Related Data Home Medications ?Medication ?Instructions ?Recorded ?Confirmed amlodipine 5 mg tablet 5 mg PO HS 05/16/22 06/26/25 hydrochlorothiazide 25 mg tablet 25 mg PO HS 05/16/22 06/26/25 losartan 100 mg tablet 100 mg PO HS 05/16/22 06/26/25 glucosamine sulfate 500 mg capsule 500 mg PO BID 10/18/22 06/26/25 selenium 200 mcg capsule 200 mcg PO DAILY 10/18/22 06/26/25 multivitamin (Daily Multi-Vitamin 1 tab PO DAILY 08/13/23 06/26/25 tablet) metoprolol succinate 100 mg 100 mg PO DAILY 06/26/25 06/26/25 tablet,extended release 24 hr Allergies Allergy/AdvReac Type Severity Reaction Status Date / Time lisinopril Allergy Cough Verified 06/26/25 07:50 Review of Systems Status of ROS: Reports: 6 or more systems reviewed and unremarkable except as noted in History and below [facility] Medical History Ascending aorta dilatation ?I77.810 - Thoracic aortic ectasia (ICD-10) H/O echocardiogram ?Z92.89 - Personal history of other medical treatment (ICD-10) Left ventricular dysfunction ?I51.9 - Heart disease, unspecified (ICD-10) Aortic regurgitation ?I35.1 - Nonrheumatic aortic (valve) insufficiency (ICD-10) Nonobstructive atherosclerosis of coronary artery ?I25.10 - Atherosclerotic heart disease of [place] coronary artery without angina pectoris (ICD-10) Ischemic cardiomyopathy ?I25.5 - Ischemic cardiomyopathy (ICD-10) Primary malignant neoplasm of prostate ?C61 - Malignant neoplasm of prostate (ICD-10) Elevated PSA ?R97.20 - Elevated prostate specific antigen [PSA] (ICD-10) Essential hypertension ?I10 - Essential (primary) hypertension (ICD-10) Seborrheic keratoses ?L82.1 - Other seborrheic keratosis (ICD-10) [facility] current use of anticoagulant ?Z79.01 - buttermaker continuous churn (current) use of anticoagulants (ICD-10) Surgical History Hx laparoscopic cholecystectomy (~10/20/22) ?Z90.49 - Acquired absence of other specified parts of digestive tract (ICD-10) Hx of colonoscopy ?Z98.890 - Other specified postprocedural states (ICD-10) Status post prostatectomy (~08/02/23) ?Z90.79 - Acquired absence of other genital organ(s) (ICD-10) History of tonsillectomy and adenoidectomy (~195) ?Z90.89 - Acquired absence of other organs (ICD-10) Hx of inguinal hernia repair (~08/30/12) ?Z98.890 - Other specified postprocedural states (ICD-10) ?Z87.19 - Personal history of other diseases of the digestive system (ICD-10) Family History Mother Breast cancer CHF (congestive heart failure) High blood pressure Dementia Thyroid disease Father Parkinsonism Social History Narrative: 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 to Lazaro, whose here with him today. Lifelong non tobacco user. Denies alcohol or recreational drug use. What is your current living situation?: I presently have a place to live Problems where you live: no known problems Problems where you live details: NA In the past 12 months, utilities in danger of being shut off: no In past 12 months, lack of transportation kept you from medical appts, meetings, work, or getting things needed for daily living: no In the past 12 mos, have been you worried that your food would run out before you had money to buy more?: never true In the past 12 mos, the food you bought just didn't last and you didn't have money to buy more?: never true Smoking Status: Never smoker Do you use any of these nicotine containing products: None Second hand tobacco smoke exposure: No How often do you have a drink containing alcohol: never How often do you have six or more drinks on one occasion: Never AUDIT-C Alcohol total score: 0 Non-prescribed substance use: denies use Caffeine: No How often does anyone, including family, friends and others, physically hurt you: never How often does anyone, including family, friends and others, insult or talk down to you: never How often does anyone, including family, friends and others, threaten you with harm: never How often does anyone, including family, friends and others, scream or curse at you: never service: No Exam Narrative: Exam Narrative: Pleasant. NAD. 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 Mentating clearly. Articulating acurately. Cranial nerves 2-12 intact. Pupils are 3 mm and equal and appropriately reactive. Head is atraumatic. Very carefully groomed buzz cut. Moving all extremities without difficulty. Accurate point point in heel to yang. No weaknesses identifiable. Lungs appear clear. Heart appears to be in a regular rate and rhythm. Abdomen present bowel sounds soft nontender. Extremities are well perfused without edema. Const: Vital Signs, click to edit/add: Vital Signs - 24 hr 06/26/25 07:40 06/26/25 07:41 06/26/25 07:41 Temperature 97.6 F Pulse Rate 74 90 Pulse Rate [Pulse Oximeter] 79 Respiratory Rate 12 16 20 Blood Pressure 144/76 H Blood Pressure [Le ft Upper Arm] 144/76 H Pulse Oximetry 97 92 95 Oxygen Delivery Me thod Room Air 06/26/25 07:42 06/26/25 07:45 06/26/25 08:03 Temperature Pulse Rate 80 72 74 Pulse Rate [Pulse Oximeter] Respiratory Rate 19 19 Blood Pressure 143/78 H Blood Pressure [Le ft Upper Arm] Pulse Oximetry 95 97 96 Oxygen Delivery Me thod 06/26/25 08:04 06/26/25 08:15 06/26/25 08:30 Temperature Pulse Rate 70 69 Pulse Rate [Pulse Oximeter] Respiratory Rate 12 23 Blood Pressure Blood Pressure [Le ft Upper Arm] Pulse Oximetry 98 98 94 Oxygen Delivery Me thod 06/26/25 08:31 06/26/25 08:32 06/26/25 08:45 Temperature Pulse Rate 74 76 Pulse Rate [Pulse Oximeter] Respiratory Rate Blood Pressure 142/77 H Blood Pressure [Le ft Upper Arm] Pulse Oximetry 98 97 93 Oxygen Delivery Me thod 06/26/25 09:00 06/26/25 09:02 06/26/25 09:15 Temperature Pulse Rate 79 76 70 Pulse Rate [Pulse Oximeter] Respiratory Rate 14 Blood Pressure 122/69 Blood Pressure [Le ft Upper Arm] Pulse Oximetry 99 97 Oxygen Delivery Me thod 06/26/25 09:30 06/26/25 09:32 06/26/25 09:33 Temperature Pulse Rate 80 77 80 Pulse Rate [Pulse Oximeter] Respiratory Rate 16 16 13 Blood Pressure 134/82 Blood Pressure [Le ft Upper Arm] Pulse Oximetry 97 97 97 Oxygen Delivery Me thod 06/26/25 09:45 06/26/25 10:00 06/26/25 10:02 Temperature Pulse Rate 79 82 80 Pulse Rate [Pulse Oximeter] Respiratory Rate 14 Blood Pressure 132/71 Blood Pressure [Le ft Upper Arm] Pulse Oximetry 91 96 97 Oxygen Delivery Me thod 06/26/25 10:25 06/26/25 10:30 06/26/25 10:32 Temperature Pulse Rate 77 86 85 Pulse Rate [Pulse Oximeter] Respiratory Rate 16 18 7 L Blood Pressure 149/77 H 136/78 Blood Pressure [Le ft Upper Arm] Pulse Oximetry 95 97 96 Oxygen Delivery Me thod 06/26/25 10:33 06/26/25 10:55 06/26/25 11:00 Temperature Pulse Rate 90 90 Pulse Rate [Pulse Oximeter] Respiratory Rate 12 Blood Pressure Blood Pressure [Le ft Upper Arm] Pulse Oximetry 97 99 Oxygen Delivery Me thod 06/26/25 11:03 06/26/25 11:15 06/26/25 11:30 Temperature Pulse Rate Pulse Rate [Pulse Oximeter] Respiratory Rate 22 16 Blood Pressure 131/62 Blood Pressure [Le ft Upper Arm] Pulse Oximetry Oxygen Delivery Me thod 06/26/25 11:32 Temperature Pulse Rate Pulse Rate [Pulse Oximeter] Respiratory Rate 16 Blood Pressure 140/70 H Blood Pressure [Le ft Upper Arm] Pulse Oximetry Oxygen Delivery Me thod Documenting provider has reviewed patient's vital signs: yes Course Vital Signs Vital signs: Initial Vital Signs Pulse Rate 74 06/26/25 07:40 Respiratory Rate 12 06/26/25 07:40 Blood Pressure 144/76 H 06/26/25 07:40 Blood Pressure Mean 98 06/26/25 07:40 Pulse Oximetry 97 06/26/25 07:40 Vital Signs Pulse Rate 74 06/26/25 07:40 Respiratory Rate 12 06/26/25 07:40 Blood Pressure 144/76 H 06/26/25 07:40 Pulse Oximetry 97 06/26/25 07:40 Temperature 97.6 F 06/26/25 07:41 Pulse Rate 90 06/26/25 10:55 Respiratory Rate 16 06/26/25 11:32 Blood Pressure 140/70 H 06/26/25 11:32 Pulse Oximetry 99 06/26/25 10:55 Oxygen Delivery Method Room Air 06/26/25 07:41 Medications Administered Medications: Discontinued Medications Generic Name Dose Route Start Last Admin Trade Name Freq PRN Reason Stop Dose Admin Sodium Chloride 1,000 mls @ 1,000 mls/hr 06/26/25 08:30 06/26/25 10:45 0.9 % Sodium Chloride 1000 Ml IV 06/26/25 09:29 Infused .Q1H ONE Infusion Medical Decision Making MDM Narrative Medical decision making narrative: This sounds to have been parasomnia or sleep trajectory event of some sort; with creeping dementia perhaps this would be even more likely. Does not seem like typical seizure but I suppose it is possible. I think unlikely ischemic CVA; outside treatment window/wake-up event. Possible bleed. Head CT as noted has been done. I suppose possible arrhythmia. Be monitor on hospital monitor. IV fluids. Check standard labs. EKG as below. CT head independently reviewed by me looks to be without acute abnormality. Labs are reassuring and no events on hospital monitor beyond initially present/seen EKG. I did discuss this case with neurology/stroke neuro on-call. They are able to review some records. Seems that there may be some questions still of arrhythmia from January. With this in mind and a question of some initial left-sided weakness, which was not present on presentation here, would lean toward doing vascular studies of the head and neck as well. Would not be able to do MRI here considering pacer. Vascular studies, preliminary reads are unremarkable. With these findings, no further recommendations from neuro. Mr. Hull still feels well and I think appropriate for discharge See patient discharge plan for discussion Strange things can happen during sleep or sleep-adjacent. I do not know what exactly occurred here. You look well now. Imaging is reassuring; final read is also pending. We will let you know if further action is needed. No further recommendations at this time other than resting today. Stay well-hydrated. Lab Data Lab results reviewed: Yes I reviewed the patient's lab results Labs: Lab Results 06/26/25 06/26/25 06/26/25 Range/Units 08:13 08:31 08:42 WBC 9.28 (4.50-11.00) K/uL RBC 3.79 L (4.30-5.90) m/uL Hgb 12.5 L (13.5-17.5) gm/dL Hct 37.2 (37.0-53.0) % MCV 98 (80-100) fL MCH 33 (26-34) pg MCHC 34 (32-36) gm/dL RDW Coeff of Keely 12.7 (11.5-15.5) % Plt Count 191 (140-440) K/uL Neut % (Auto) 82.5 H (42.0-72.0) % Lymph % (Auto) 9.8 L (20-44) % [place] % (Auto) 6.7 (0.0-11.0) % Eos % (Auto) 0.5 (0.0-7.0) % Baso % (Auto) 0.2 (0.0-3.0) % Neut # (Auto) 7.70 H (1.7-7.0) K/uL Lymph # (Auto) 0.90 (0.90-2.90) K/uL [place] # (Auto) 0.60 (0.00-0.90) K/UL Eos # (Auto) 0.05 (0.00-0.50) K/uL Baso # (Auto) 0.02 (0.00-0.30) K/uL Abs Immat Gran (auto) 0.03 (0.00-0.30) K/uL Imm/Tot Granulo (auto) 0.3 % Sodium 136 (135-149) mmol/L Potassium 3.9 (3.6-5.1) mmol/L Chloride 100 (96-114) mmol/L Carbon Dioxide 33 H (20-32) mmol/L Anion Gap 3 L (7-15) mEq/L BUN 22 (7-30) mg/dL Creatinine 1.1 (0.5-1.5) mg/dL Estimated Creat Clear 60.75 Estimated GFR 69 ml/min Glucose 113 (60-115) mg/dL Lactate 1.6 (0.5-1.9) mmol/L Calcium 9.5 (8.4-10.6) mg/dL Total Bilirubin 0.7 (0.1-1.5) mg/dL AST 35 (12-35) U/L ALT 21 (4-50) U/L Alkaline Phosphatase 59 (40-150) U/L Troponin I 0.01 (0.01-0.04) ng/mL C-Reactive Protein < 0.5 L (0.5-1.0) mg/dL Total Protein 7.2 (6.0-8.3) g/dL Albumin 4.1 (3.3-5.0) g/dL Urine Color (Yellow) Urine Appearance (Clear) Urine pH (5.0-8.5) Ur Specific [place] (1.000-1.030) Urine Protein (Negative) Urine Glucose (UA) (Negative) Urine Ketones (Negative) Urine Blood (Negative) Urine Nitrite (Negative) Urine Bilirubin (Negative) Urine Urobilinogen (0.2-1.0) Ur Leukocyte Esterase (Negative) Urine RBC (0-2) Urine WBC (0-5) Ur Squamous Epith Cells (None-Few) Amorphous Sediment (None) Urine Bacteria (None) Ethyl Alcohol < 0.01 (0.01-0.03) % Lab Acknowledgement Test Added Test Added POC Troponin I 0.00 L (0.01-0.04) ng/ml 06/26/25 Range/Units 10:20 WBC (4.50-11.00) K/uL RBC (4.30-5.90) m/uL Hgb (13.5-17.5) gm/dL Hct (37.0-53.0) % MCV (80-100) fL MCH (26-34) pg MCHC (32-36) gm/dL RDW Coeff of Keely (11.5-15.5) % Plt Count (140-440) K/uL Neut % (Auto) (42.0-72.0) % Lymph % (Auto) (20-44) % [place] % (Auto) (0.0-11.0) % Eos % (Auto) (0.0-7.0) % Baso % (Auto) (0.0-3.0) % Neut # (Auto) (1.7-7.0) K/uL Lymph # (Auto) (0.90-2.90) K/uL [place] # (Auto) (0.00-0.90) K/UL Eos # (Auto) (0.00-0.50) K/uL Baso # (Auto) (0.00-0.30) K/uL Abs Immat Gran (auto) (0.00-0.30) K/uL Imm/Tot Granulo (auto) % Sodium (135-149) mmol/L Potassium (3.6-5.1) mmol/L Chloride (96-114) mmol/L Carbon Dioxide (20-32) mmol/L Anion Gap (7-15) mEq/L BUN (7-30) mg/dL Creatinine (0.5-1.5) mg/dL Estimated Creat Clear Estimated GFR ml/min Glucose (60-115) mg/dL Lactate (0.5-1.9) mmol/L Calcium (8.4-10.6) mg/dL Total Bilirubin (0.1-1.5) mg/dL AST (12-35) U/L ALT (4-50) U/L Alkaline Phosphatase (40-150) U/L Troponin I (0.01-0.04) ng/mL C-Reactive Protein (0.5-1.0) mg/dL Total Protein (6.0-8.3) g/dL Albumin (3.3-5.0) g/dL Urine Color Yellow (Yellow) Urine Appearance Clear (Clear) Urine pH 7.0 (5.0-8.5) Ur Specific [place] 1.020 (1.000-1.030) Urine Protein Negative (Negative) Urine Glucose (UA) Negative (Negative) Urine Ketones Negative (Negative) Urine Blood Negative (Negative) Urine Nitrite Negative (Negative) Urine Bilirubin Negative (Negative) Urine Urobilinogen 0.2 (0.2-1.0) Ur Leukocyte Esterase Negative (Negative) Urine RBC 0-2 (0-2) Urine WBC 0-2 (0-5) Ur Squamous Epith Cells None (None-Few) Amorphous Sediment Few A (None) Urine Bacteria None (None) Ethyl Alcohol (0.01-0.03) % Lab Acknowledgement POC Troponin I (0.01-0.04) ng/ml ECG Data Attestation: I personally reviewed and interpreted this ECG as follows: (Sinus rhythm. PVC. Right bundle/bifascicular block. Appears similar to prior from 2022. Rate of 74.) Discharge Plan Discharge Clinical Impression: Parasomnia Patient Disposition: Home w/ Parent or Adult Condition: Improved Additional Instructions: Strange things can happen during sleep or sleep-adjacent. I do not know what exactly occurred here. You look well now. Imaging is reassuring; final read is also pending. We will let you know if further action is needed. No further recommendations at this time other than resting today. Stay well-hydrated. Prescriptions: No Action glucosamine sulfate 500 mg capsule 500 mg PO BID Rx Instructions: administer with meals selenium 200 mcg capsule 200 mcg PO DAILY amlodipine 5 mg tablet 5 mg PO HS hydrochlorothiazide 25 mg tablet 25 mg PO HS losartan 100 mg tablet 100 mg PO HS multivitamin [Daily Multi-Vitamin] Tablet 1 tab PO DAILY metoprolol succinate 100 mg tablet extended release 24 hr 100 mg PO DAILY Follow Up/Referrals: Joao Beach MD [Primary Care Provider, Family Practice] Stand Alone Forms: [employer] Info Instructions
[2025-06-26 08:20] LABS: Lactate* 1.6 mmol/L (0.5-1.9)
[2025-06-26 08:23] LABS: Hematocrit* 37.2 % (37.0-53.0); Hemoglobin* 12.5 gm/dL (13.5-17.5); Immature Granulocytes Abs Auto 0.03 K/uL (0.00-0.30); Immature Granulocytes Pct Auto 0.3 %; Mean Corpuscular HGB Conc 34 gm/dL (32-36); Mean Corpuscular Hemoglobin 33 pg (26-34); Mean Corpuscular Volume 98 fL (80-100); RDW Coefficient of Variation % 12.7 % (11.5-15.5); Red Blood Count* 3.79 m/uL (4.30-5.90); White Blood Count* 9.28 K/uL (4.50-11.00)
[2025-06-26 08:30] LABS: Troponin, Point-of-Care* 0.00 ng/ml (0.01-0.04)
[2025-06-26 08:34] LABS: Lymphocytes Absolute Auto 0.90 K/uL (0.90-2.90); Slide Review Reflex No
[2025-06-26 08:47] LABS: Albumin* 4.1 g/dL (3.3-5.0); Chloride* 100 mmol/L (96-114); Sodium* 136 mmol/L (135-149)
[2025-06-26 08:48] LABS: Potassium* 3.9 mmol/L (3.6-5.1)
[2025-06-26 08:50] LABS: Alanine Aminotransferase* 21 U/L (4-50); Alkaline Phosphatase* 59 U/L (40-150); Anion Gap 3 mEq/L (7-15); Aspartate Amino Transferase* 35 U/L (12-35); Bilirubin Total* 0.7 mg/dL (0.1-1.5); Blood Urea Nitrogen* 22 mg/dL (7-30); Carbon Dioxide* 33 mmol/L (20-32); Creatinine* 1.1 mg/dL (0.5-1.5); Est. Creatinine Clearance* 60.75; Estimated Glomerular Filt Rate 69 ml/min; Total Protein* 7.2 g/dL (6.0-8.3)
[2025-06-26 08:51] LABS: Calcium* 9.5 mg/dL (8.4-10.6); Glucose* 113 mg/dL (60-115)
[2025-06-26 08:58] LABS: Ethanol* < 0.01 % (0.01-0.03)
--- NOTE | 2025-06-26 10:10 | CRLHL7_ITS ---
For Patients: As a result of the Century Cures Act, medical imaging exams and procedure reports are released immediately into your electronic medical record. You may view this report before your referring provider. If you have questions, please contact your health care provider. INDICATION: Altered mental status. TECHNIQUE: Chest 1 frontal view. COMPARISON: 08/13/2023. FINDINGS: Intracardiac device appears appropriately positioned. No pneumothorax, pleural effusion or airspace consolidation. Stable cardiac and mediastinal contours. No pulmonary edema. Upper abdomen and osseous structures as imaged show no acute abnormality. IMPRESSION: No evidence of acute cardiopulmonary disease. Dictated by Christian Augustin MD @ 06/26/2025 11:01:38 AM (Electronically Signed)
--- NOTE | 2025-06-26 10:11 | CRLHL7_ITS ---
For Patients: As a result of the Century Cures Act, medical imaging exams and procedure reports are released immediately into your electronic medical record. You may view this report before your referring provider. If you have questions, please contact your health care provider. INDICATION: Acute stroke, left-sided weakness. TECHNIQUE: CTA head using intravenous contrast with bolus tracking, 3D angiographic rendering using maximum intensity projection (MIP) and images permanently archived. CTA neck using intravenous contrast with bolus tracking, 3D angiographic rendering using maximum intensity projection (MIP) and images permanently archived. FINDINGS: CTA head: There is scattered intracranial atherosclerotic disease. There is normal opacification of the intracranial vasculature. There is no large vessel occlusion. No aneurysm is identified. CTA neck: There is carotid atherosclerosis bilaterally. There is no significant carotid artery stenosis or dissection. There is no significant vertebral artery stenosis or dissection. Small indeterminate thyroid nodules are present. Degenerative changes are noted in the cervical spine. IMPRESSION: No acute intracranial abnormality at CTA. No significant carotid or vertebral artery stenosis or dissection. Please note that all CT scans at this facility use dose modulation, iterative reconstruction, and/or weight-based dosing when appropriate to reduce radiation dose to as low as reasonably achievable. Dictated by Colin Tovar MD @ 06/26/2025 12:20:48 PM (Electronically Signed)
[2025-06-26 10:29] LABS: Appearance Urine Clear (Clear)
== END 2025-06-26 12:24 | disposition home or self-care (01) ==
PROVIDERS: Family Medicine; Emergency Provider Family Medicine; PCP Family Medicine
DX: G47.50 Parasomnia, unspecified (principal)
CPT/HCPCS: 36415; 70450; 70496; 70498; 71045; 80053; 80306; 81001; 81003; 82077; 83605; 84484; 85025; 86140; 93005; 94761; 96360; 99284; 99285; J7030; Q9967